=== PATIENT | female | born 1980 | race Caucasian/White ===

== ENCOUNTER 2021-02-23 08:06 | Outpatient (CLI) | payer OTHER, SELFPAY ==
--- NOTE | 2021-02-23 08:23 | ECHO_ITS ---
Patient Info Name: Calli Alexander Age: 40 years : 1980 Gender: Female Ht: 62 in Wt: 219 lbs BSA: 2.14 m2 HR: 91 bpm BP: 118 / 88 mmHg Heart Rhythm: Sinus Rhythm Exam Date: 02/23/2021 8:35 AM Exam Location: [facility] Patient Status: Outpatient Admit Date: 02/23/2021 Staff Ordering Physician: Veena Thapa NP Electric Blanket Packer: Ирина Aguilera RDCS Attending Provider: Veena Thapa NP Exam Type: CA echo doppler color flow Study Info Indications R01.1 - Cardiac murmur, unspecified Complete two-dimensional, color flow and Doppler transthoracic echocardiogram is performed. Summary 1. Complete two-dimensional, color flow and Doppler transthoracic echocardiogram is performed. 2. Left ventricular chamber dimension is normal. 3. Left ventricular systolic function is normal, estimated at 60-65%. 4. The left ventricular diastolic function is grade I diastolic dysfunction. 5. E/e' 10 is mildly elevated. 6. Left atrial chamber dimension is mildly enlarged. 7. There is trace mitral valve regurgitation. 8. No pulmonary hypertension, estimated pulmonary arterial systolic pressure is 31 mmHg. Left Ventricle E/e' 10 is mildly elevated. Left ventricular chamber dimension is normal. Left ventricular systolic function is normal, estimated at 60-65%. The left ventricular diastolic function is grade I diastolic dysfunction. Right Ventricle Right ventricular chamber dimension is normal. Right ventricular systolic function is normal. Left Atria Left atrial chamber dimension is mildly enlarged. Right Atria Right atrial chamber dimension is normal. Aortic Valve The aortic valve is trileaflet. There is no aortic valve stenosis. There is no aortic valve regurgitation. Pulmonic Valve There is no pulmonic regurgitation. Mitral Valve There is no mitral valve stenosis. There is trace mitral valve regurgitation. Tricuspid Valve There is no tricuspid valve regurgitation. No pulmonary hypertension, estimated pulmonary arterial systolic pressure is 31 mmHg. Pericardium/Pleural There is no pericardial effusion. Inferior Vena Cava Normal inferior vena cava with >50% collapse upon inspiration consistent with normal right atrial pressure, 5 mmHg. Aorta The aortic root size at the sinus of Valsalva is normal. Left Ventricular Outflow Tract Name Value Normal LVOT 2D LVOT Diameter 1.8 cm LVOT Doppler LVOT Peak Gradient 12 mmHg LVOT Mean Gradient 6 mmHg LVOT VTI 40 cm LVOT VTI/AV VTI Ratio 0.9 LVOT Stroke Volume 97 ml LVOT CO 7.9 l/min LVOT CI 3.7 l/min/m2 Pulmonic Valve Name Value Normal RVOT Doppler RVOT Peak Gradient
== END 2021-02-23 08:07 | disposition home or self-care (01) ==
PROVIDERS: PCP Internal Medicine; Visit Provider Nurse Practitioner
DX: R01.1 Cardiac murmur, unspecified (principal)
CPT/HCPCS: 93306

== ENCOUNTER 2021-04-15 08:22 | Outpatient (CLI) | payer OTHER, SELFPAY ==
--- NOTE | ~2021-04-15 | CT_ITS ---
EXAMINATION: CT abdomen pelvis wo/w con DATE: 04/15/2021 10:02 INDICATION: History of kidney cancer, partial left nephrectomy. TECHNIQUE: Computed tomography (CT) of the abdomen and pelvis was performed without intravenous contr ast. CT of the abdomen and pelvis was then performed with a total of 130 mL Omnipaque 350 intravenous contrast using a double-bolus technique for simultaneous opacification of the renal parenchyma and r enal collecting system. The dose-length product (DLP) was 2693.48 mGy-cm. Automated exposure control and iterative reconstruction technique were employed. COMPARISON: 11/28/2014 FINDINGS: The lung bases are clear. The heart size is normal. The gallbladder is surgically absent. T he liver, spleen, pancreas, and adrenal glands are normal. There are changes of partial left nephrect edelmira. No residual or recurrent mass is identified. The right kidney is unremarkable. Hypoattenuating l esions in the upper pole of the left kidney, measuring up to 4 mm, are too small to characterize but likely represent cysts. No pathologically enlarged abdominal or pelvic lymph nodes are identified. Th ere is no free intraperitoneal gas or evidence of bowel obstruction. IMPRESSION: 1. Changes of partial left nephrectomy without residual or recurrent disease identified. Reviewed, dictated and finalized at location A. IMPRESSION: 1. Changes of partial left nephrectomy without residual or recurrent disease id entified.
--- NOTE | ~2021-04-15 | XR_ITS ---
EXAMINATION: XR chest 2V DATE: 04/15/2021 09:24 INDICATION: History of kidney cancer TECHNIQUE: PA and lateral views of the chest are obtained. COMPARISON: 08/17/2013 FINDINGS: The lungs are free of acute opacities. There is no pleural effusion or pneumothorax. The ca rdiomediastinal silhouette is normal. There is mild thoracic spondylosis. IMPRESSION: 1. No acute cardiopulmonary abnormality. Reviewed, dictated and finalized at location A.
[2021-04-15 09:16] LABS: Hematocrit 44.4 % (37.0-47.0); Hemoglobin 14.1 g/dL (12.0-15.0); Mean Corpuscular HGB Conc 31.8 g/dl (32-36); Mean Corpuscular Hemoglobin 27.3 pg (26-34); Mean Platelet Volume 10.4 fl (7.4-10.4); Platelet Count Result 334 k/mm3 (150-375); Red Blood Count 5.16 M/mm3 (4.2-5.4); Red Cell Distribution Width 13.9 % (11.5-14.5); White Blood Count 11.4 K/mm3 (4.5-10.0)
[2021-04-15 09:28] LABS: Anion Gap 10 mmol/L (8-16); Blood Urea Nitrogen 18 mg/dL (7-17); Calcium 10.3 mg/dL (8.4-10.2); Carbon Dioxide 25 mmol/L (22-30); Chloride 102 mmol/L (98-107); Estimated Glomerular Filt Rate > 60; Glucose 103 mg/dL (65-105); Potassium 4.6 mmol/L (3.4-5.0); Sodium 137 mmol/L (137-145)
[2021-04-15 09:39] LABS: Estimated Glomerular Filt Rate > 60
== END 2021-04-15 08:23 | disposition home or self-care (01) ==
PROVIDERS: PCP Internal Medicine
DX: Z85.528 Personal history of other malignant neoplasm of kidney (principal)
CPT/HCPCS: 36415; 71046; 74178; 80048; 85027; Q9967

== ENCOUNTER 2023-11-04 08:02 | Emergency (ER) | payer OTHER, SELFPAY ==
--- NOTE | ~2023-11-04 | XR_ITS ---
EXAMINATION: XR chest 1V portable INDICATION: Upper respiratory infection TECHNIQUE: Portable AP chest at 0838 hours COMPARISON: 04/15/2021 FINDINGS: There is a nodular airspace opacity in the left lung base. No pleural effusion or pneumotho rax. The cardiomediastinal silhouette is normal. IMPRESSION: 1. Left basilar airspace opacity, likely pneumonia. Given patient's history of left kidney cancer, fo llow-up radiographs after appropriate therapy are recommended to document resolution. Reviewed, dictated and finalized at location F. ETING PERFORMANCE ANALYST IMPRESSION: 1. Left basilar airspace opacity, likely pneumonia. Given patient's history of left kidney cancer, follow-up radiographs after appropriate therapy are recomme nded to document resolution.
[2023-11-04 08:04] VITALS: BP 148/85; PULSE 103; RESP 12; TEMP 37.1; O2SAT 100
[2023-11-04 08:13] VITALS: O2SAT 98
--- NOTE | 2023-11-04 08:21 | ECG_ITS ---
Measurements Intervals [place] Rate: 97 P: 69 ND: 119 QRS: 67 QRSD: 81 T: 69 QT: 355 QTc: 452 Interpretive Statements SINUS RHYTHM WITH SHORT ND INTERVAL VOLTAGE CRITERIA FOR LVH BASELINE ARTIFACT- I, II, III, AVR, AVL, AVF, V1-V6 BORDERLINE ECG NO PREVIOUS ECG AVAILABLE FOR COMPARISON Electronically Signed On 11-06-2023 8:36:17 TELECINE OPERATOR by Lazarus Bagley D.O.
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
[2023-11-04] MEDS: MORPHINE SULFATE (*CRX) 2 MG/ML INJ IV PUSH (08:30)
[2023-11-04 08:38] LABS: Basophils Absolute Auto 0.1 K/mm3 (0.0-0.1); Basophils Percent Auto 0.4 % (0.2-1.2); Eosinophils Absolute Auto 0.1 K/mm3 (0-0.3); Eosinophils Percent Auto 0.7 % (0-4.4); Hematocrit 41.7 % (37.0-47.0); Hemoglobin 13.7 g/dL (12.0-15.0); Immature Granulocyte Absolute 0.08 K/mm3 (0.00-0.031); Immature Granulocyte Percent A 0.4 % (0-0.5); Lymphocytes Absolute Auto 1.33 K/mm3 (0.9-3.2); Lymphocytes Percent Auto 6.8 % (18.3-44.2); Mean Corpuscular HGB Conc 32.9 g/dl (32-36); Mean Corpuscular Hemoglobin 28.7 pg (26-34); Mean Corpuscular Volume 87.4 fl (80-100); Mean Platelet Volume 10.9 fl (7.4-10.4); Monocytes Absolute Auto 1.1 K/mm3 (0.1-0.6); Monocytes Percent Auto 5.8 % (2.6-8.5); Neutrophils Absolute Auto 16.8 K/mm3 (1.3-6.7); Neutrophils Percent Auto 85.9 % (45.5-73.1); Platelet Count Result 298 k/mm3 (150-375); Red Blood Count 4.77 M/mm3 (4.2-5.4); Red Cell Distribution Width 12.8 % (11.5-14.5); White Blood Count 19.6 K/mm3 (4.5-10.0)
[2023-11-04 08:47] LABS: Prothrombin Time 13.3 Seconds (11.1-14.7)
[2023-11-04 08:48] LABS: Partial Thromboplastin Time 32.3 SECONDS (22.3-36.8)
[2023-11-04 08:54] VITALS: BP 108/65; PULSE 97; RESP 18; O2SAT 100
[2023-11-04 08:57] LABS: Alanine Aminotransferase 20 U/L (6-35); Albumin Level 4.3 g/dL (3.5-5.1); Alkaline Phosphatase 97 U/L (38-126); Anion Gap 7 mmol/L (8-16); Aspartate Amino Transferase 26 U/L (14-36); Bilirubin,Total 0.8 mg/dL (0.2-1.3); Blood Urea Nitrogen 19 mg/dL (7-17); Carbon Dioxide 29 mmol/L (22-30); Chloride 101 mmol/L (98-107); Estimated CRCL calculation 80 ml/min; Estimated Glomerular Filt Rate > 60; Glucose 127 mg/dL (65-110); Lactic Acid Reflex 1.2 mmol/L (0.7-2.0); Lipase 43 U/L (23-300); Potassium 3.3 mmol/L (3.4-5.0); Sodium 137 mmol/L (137-145)
[2023-11-04 09:15] LABS: Influenza A QL RT-PCR Negative (Negative); Influenza B QL RT-PCR Negative (Negative); RSV RNA, RT-PCR Negative (Negative); SARS-CoV-2 RNA PCR Positive (Negative)
[2023-11-04] MEDS: DOXYCYCLINE HYCLATE 100 MG TABLET PO (09:49)
[2023-11-04 10:01] LABS: Troponin I < 0.012 ng/mL (0.000-0.034)
[2023-11-04 10:58] VITALS: BP 128/81; PULSE 94; RESP 18; TEMP 36.7; O2SAT 96
--- NOTE | 2023-11-04 11:04 | PC.NURSE ---
Pt refusing to leave department. Came to nurses to take names to give to the [employer] for discharging pt. Pt states RX is not for her pneumonia, that medicine is prescribed for IBS RN instructed pt on uses of Doxycycline & Dr. Urbina spoke about Doxycyline.
--- NOTE | 2023-11-04 11:11 | PC.NURSE ---
RN called security for pt assistance to waiting room. Pt needing encouraged to leave.
--- NOTE | 2023-11-04 11:37 | PC.NURSE ---
Pt continues to refuse to leave clinical laboratory manager Susie speaking with pt, reviewing discharge instructions
--- NOTE | 2023-11-04 11:40 | PC.NURSE ---
Pt escorted from department by security.
== END 2023-11-04 11:42 | disposition home or self-care (01) ==
PROVIDERS: Emergency Provider Emergency Medicine; PCP Internal Medicine
DX: U07.1 COVID-19 (principal); J18.9 Pneumonia, unspecified organism; R07.89 Other chest pain; J45.909 Unspecified asthma, uncomplicated; I10 Essential (primary) hypertension; E78.5 Hyperlipidemia, unspecified; E11.9 Type 2 diabetes mellitus without complications; N28.9 Disorder of kidney and ureter, unspecified; M19.90 Unspecified osteoarthritis, unspecified site; M79.7 Fibromyalgia; F17.210 Nicotine dependence, cigarettes, uncomplicated; Z85.528 Personal history of other malignant neoplasm of kidney; Z85.41 Personal history of malignant neoplasm of cervix uteri; Z86.2 Personal history of diseases of the blood and blood-forming organs and certain disorders involving the immune mechanism; Z90.5 Acquired absence of kidney; Z79.84 Long term (current) use of oral hypoglycemic drugs; R94.31 Abnormal electrocardiogram [ECG] [EKG]
CPT/HCPCS: 36415; 71045; 80053; 83605; 83690; 84484; 85025; 85610; 85730; 87637; 93005; 96374; 99284; A9270; J2270

== ENCOUNTER 2024-07-01 17:55 | Inpatient (IN) | payer OTHER, SELFPAY ==
--- NOTE | ~2024-07-01 | CT_ITS ---
Non-contrast Head CT History: Headache Technique: Axial non-contrast imaging of the brain was performed. Dose reduction technique was used on this scan by utilizing automated exposure control and iterative reconstruction technique. The dose -length product (DLP) was 605.33 mGy-cm. Findings: There is no evidence of intracranial hemorrhage, mass lesion, or acute infarct. Brain par enchyma appears normal. The ventricles and subarachnoid spaces are normal in size. The calvarium ap pears normal. The visualized paranasal sinuses and mastoid air cells are clear. Impression: No significant abnormality seen. Reviewed, dictated and finalized at location . Impression: No significant abnormality seen.
--- NOTE | ~2024-07-01 | CT_ITS ---
EXAMINATION: CT abdomen pelvis w con DATE: 07/02/2024 13:17 INDICATION: Kidney cancer. TECHNIQUE: Computed tomography (CT) of the abdomen and pelvis was performed with 100 mL Omnipaque 350 intravenous contrast. Automated exposure control and iterative reconstruction technique were employe d. The dose-length product was 369.20 mGy-cm. COMPARISON: CT abdomen and pelvis 04/15/2021 FINDINGS: The visualized portions of the lung bases demonstrate mild atelectasis on the left. No pleu ral effusion. The heart size is normal. No pericardial effusion. The liver and spleen are normal. The re are changes of cholecystectomy. The pancreas and adrenal glands are normal. There is cortical jax ical thinning of right kidney. There are changes of partial left nephrectomy. There is a left flank i ncisional hernia containing fat. There are no dilated loops of bowel. The appendix is normal. There a re no pathologically enlarged lymph nodes. There is no free intraperitoneal fluid. There is severe lo wer lumbar spondylosis. IMPRESSION: 1. Partial left nephrectomy. No residual or recurrent neoplasm. Reviewed, dictated and finalized at location A.
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
--- NOTE | ~2024-07-01 | US_ITS ---
EXAMINATION: US soft tissue UE RT DATE: 07/02/2024 15:04 INDICATION: Right upper arm abscess. TECHNIQUE: Multiple grayscale and Doppler ultrasound images of the right upper arm were obtained. COMPARISON: None FINDINGS: In the right axilla and right upper arm, there is hyperechoic subcutaneous fat and edema. T here is a 10 x 4 x 8 mm hypoechoic subcutaneous mass in right axilla. IMPRESSION: 1. Cellulitis involving right axilla and right upper arm. A 10 x 4 x 8 mm hypoechoic subcutaneous mas s in right axilla but may be early abscess. Reviewed, dictated and finalized at location A. IMPRESSION: 1. Cellulitis involving right axilla and right upper arm. A 10 x 4 x 8 mm hypoe choic subcutaneous mass in right axilla but may be early abscess.
[2024-07-01 18:05] VITALS: BP 136/82; PULSE 115; RESP 16; TEMP 38.1; O2SAT 99
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
--- NOTE | 2024-07-01 19:47 | PC.NURSE ---
Pt states that she is deathly afraid of needles and doesn't want to embarrass herself out in the waiting room.
[2024-07-01 20:43] VITALS: BP 96/56; PULSE 113; RESP 18; TEMP 37.6; O2SAT 99
[2024-07-01 23:20] LABS: Basophils Percent Auto 0.2 % (0.2-1.2); Eosinophils Percent Auto 0.2 % (0-4.4); Hemoglobin 12.9 g/dL (12.0-15.0); Immature Granulocyte Absolute 0.05 K/mm3 (0.00-0.031); Immature Granulocyte Percent A 0.3 % (0-0.5); Lymphocytes Percent Auto 15.2 % (18.3-44.2); Mean Corpuscular HGB Conc 33.1 g/dl (32-36); Mean Corpuscular Volume 87.6 fl (80-100); Mean Platelet Volume 10.6 fl (7.4-10.4); Monocytes Absolute Auto 1.3 K/mm3 (0.1-0.6); Monocytes Percent Auto 7.7 % (2.6-8.5); Neutrophils Absolute Auto 12.6 K/mm3 (1.3-6.7); Neutrophils Percent Auto 76.4 % (45.5-73.1); Platelet Count Result 258 k/mm3 (150-375); Red Blood Count 4.45 M/mm3 (4.2-5.4); Red Cell Distribution Width 14.6 % (11.5-14.5); White Blood Count 16.5 K/mm3 (4.5-10.0)
[2024-07-01 23:31] LABS: Prothrombin Time 13.4 Seconds (11.1-14.7)
[2024-07-01 23:37] LABS: Alanine Aminotransferase 31 U/L (6-35); Albumin Level 4.7 g/dL (3.5-5.1); Alkaline Phosphatase 88 U/L (38-126); Anion Gap 11 mmol/L (4-12); Aspartate Amino Transferase 28 U/L (14-36); Bilirubin,Total 0.6 mg/dL (0.2-1.3); Blood Urea Nitrogen 15 mg/dL (7-17); Calcium 9.4 mg/dL (8.4-10.2); Carbon Dioxide 25 mmol/L (22-30); Chloride 95 mmol/L (98-107); Estimated CRCL calculation 107 ml/min; Estimated Glomerular Filt Rate > 60; Glucose 113 mg/dL (65-110); Sodium 131 mmol/L (137-145)
[2024-07-01 23:38] LABS: Partial Thromboplastin Time 32.6 Seconds (22.3-36.8)
[2024-07-01 23:45] LABS: Erythrocyte Sedimentation Rate 31 mm/hr (0-20)
[2024-07-02] VITALS (10 sets, daily range): BP systolic 101–129; BP diastolic 45–64; PULSE 90–103; RESP 13–20; TEMP 36.5–37.3; O2SAT 98–100
--- NOTE | 2024-07-02 | PC.NURSE ---
spoke with ERP about tylenol order, stated that she would prescribe something else for pain.
[2024-07-02 00:12] LABS: CRP 7.2 mg/dL (<1.0)
[2024-07-02] MEDS: SODIUM CHLORIDE 0.9% IV 1,000 ML 999 ML IV CONT (00:43)
[2024-07-02] MEDS: ONDANSETRON INJ 4 MG/2 ML VIAL IV PUSH (00:44)
[2024-07-02] MEDS: KETOROLAC 15 MG/ML VIAL (*BKC) IV PUSH ×2 (00:44→09:21)
[2024-07-02] MEDS: VANCOMYCIN 1,250 MG/NS 250 ML BAG 166.67 MG IVPB (01:36)
--- NOTE | 2024-07-02 01:49 | PM.IMHP ---
H&P: HPI History of Present Illness Date/Time: 07/02/24 01:49 Chief Complaint: right arm cellulitis Narrative: This is a 43-year-old female with past medical history significant for COPD/emphysema, type diabetes mellitus, diabetes, asthma, fibromyalgia. 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 Comes to the emergency room due to right arm swelling tenderness redness, fevers, chills for the last 3-4 days Review of Systems Review of Systems: right arm tenderness, swelling, redness, warmth, chills PMFSH Past Medical History Medical History Allergies Anemia Asthma Cervical cancer Chicken pox Colitis Fibromyalgia Heart murmur Herpes History of kidney cancer Cancer removed left kidney 01/2018 Hyperlipidemia Hypertension Osteoarthritis Renal disease Thyroid nodule Type 2 diabetes mellitus Surgical History Surgical History H/O section 1995,2006 H/O dilation and curettage 2009 H/O eye surgery 1982, 1986, 1991, 2014 Family History Family History Mother Hypertension Diabetes mellitus Sibling Asthma Other Cerebrovascular accident Family history of allergic disorder Family history of arthritis Family history of autism Family history of eczema Family history of kidney disease Family history of malignant neoplasm Social History Social History Smoking packs per day: 1 Smoking cigarettes per day: 20.0 Years smoked: 34 Smoking pack-years: 34.00 Smoking status: Former smoker Tobacco type: cigarettes Smoking end date: 05/23/24 Alcohol intake: former Substance use: former Substance use type: methamphetamine Last use: 05/31/24 Do You Feel Safe in your Home?: Yes Lack of Transportation: YES Lack of Food: Often True Current Housing: I Do Not Have Housing Concerned About Future Housing: YES Difficulty Paying Gas/Electric Bills: Decline to Answer Difficulty Paying for Meds: No Currently Unemployed: YES Education: Trade/Vocational Certificate Difficulty w/ Childcare or Family Care: No Spiritual care concerns: No Meds Home Medications and Allergies Home Medications Medication Instructions Recorded Confirmed Type amitriptyline 50 mg tablet 50 mg PO .QHS #90 tabs 06/22/22 09/10/24 Rx albuterol sulfate 90 mcg/actuation 2 puff inhalation QID PRN 07/02/24 07/02/24 History aerosol inhaler (Ventolin HFA) Shortness Of Breath Or Wheezing Allergies Allergy/AdvReac Type Severity Reaction Status Date / Time codeine Allergy Unknown Anaphylactic Verified 07/02/24 04:44 Shock guaifenesin Allergy Unknown Reverse Verified 07/02/24 04:44 effect ketorolac Allergy Unknown vomiting Verified 07/02/24 04:44 Penicillins Allergy Unknown Anaphylactic Verified 07/02/24 04:44 Shock nuts and nut products Allergy Severe respiratory Uncoded 07/02/24 04:44 distress Vital Signs Vital Signs - 24 hr 07/01/24 18:05 07/01/24 20:43 Temperature 100.6 F H 99.6 F Pulse Rate 115 H 113 H Respiratory Rate 16 18 Blood Pressure 136/82 96/56 L Pulse Oximetry 99 99 Exam Narrative: patient laying in the stretcher Const: General: comfortable, no acute distress, well developed, alert, awake and average body habitus Nutritional Appearance: average body habitus Orientation/consciousness: patient oriented x3 HENMT: Head: normal to inspection, normocephalic and atraumatic Ears: hearing grossly normal bilaterally Face/Nose/Sinus: normal facial exam Face and sinus: normal facial exam Eyes: General: appearance normal, both eyes and all related structures Pupils: Equal, round and reactive pupils present EOM: EOMs intact bilaterally Neck: Neck: full ROM, no lymphadenop
[2024-07-02 01:59] LABS: Add Urine Microscopic? YES; Appearance Urine Cloudy (Clear); Bacteria Urine 1+ /hpf; Bilirubin Urine Negative (Negative); Blood Urine Negative (Negative); Color Urine Yellow (Yellow); Glucose Urine UA Negative (Negative); Ketones Urine Negative (Negative); Leukocyte Esterase Ur Trace LEU/UL (Negative); Nitrate Urine Negative (Negative); Non Pathogenic Casts 0-2; Protein Urine Negative (Negative); RBC Urine 0-2 /hpf (0-2); Squamous Epithelial Cell Urine Few /hpf (Few); Urobilinogen Urine 0.2 mg/dL (<2.0)
[2024-07-02] MEDS: diphenhydrAMINE HCl INJ 50 MG/ML VIAL 25 MG IV PUSH (02:20)
[2024-07-02] MEDS: MORPHINE SULFATE (*CRX) 4 MG/ML INJ IV PUSH (02:20)
[2024-07-02] MEDS: SODIUM CHLORIDE 0.9% IV 1,000 ML 125 ML IV CONT (05:45)
--- NOTE | 2024-07-02 05:50 | ADMGEN ---
This patient, Calli Alexander, was admitted to 2 Medical Room 259-01. Patient/family oriented to hospital policies and general routines including ID bracelet, bed and alarms, visiting hours, pain management, procedures, bathroom and other care routines, personal items, smoking policy, room service/diet, and visiting hours. Information on how to activate the Rapid Response Team has been discussed. Patient/Family are encouraged to report perceived risks to care and to ask questions if they do not understand what they are told or what they should do.
--- NOTE | 2024-07-02 06:56 | PM.IMPN ---
Progress Note: A&P Assessment and Plan (1) Sepsis: Code(s): A41.9 - Sepsis, unspecified organism Status: Acute Assessment and Plan: Meets SIRS criteria: WBC, HR, hypotension - lactic acid: 1.0 - s/p 1L bolus in the ED, remains on IV NS 100 ml/hr - suspected source: right arm cellulitis with abscess - blood cultures drawn on 07/01: pending - UA: cloudy appearance, trace leukocytes, 11-20 WBC, 1+ bacteria, few squamous. Likely contaminant. - Urine culture collected on 07/01: pending - Antibiotics: Vancomycin and levaquin (2) Right arm cellulitis: Code(s): L03.113 - Cellulitis of right upper limb Status: Acute Assessment and Plan: Right arm cellulitis with abscess present - Antibiotics: Vancomycin and levaquin - Blood culture collected on 07.01: pending - Monitor vital signs, I&Os, neuro status and patient is a fall risk - Monitor serum electrolytes, CBC, cultures, WBC and temp curve - Consult general surgeon Soft tissue US Continue IV antibiotics May require I&D (3) Type 2 diabetes mellitus: Code(s): E11.9 - Type 2 diabetes mellitus without complications Status: Acute Assessment and Plan: - hypoglycemia protocol - POC blood glucose ACHS - home medication - none - correct regimen ordered - low dose TIDWM - A1C ordered (4) Hypertension: Code(s): I10 - Essential (primary) hypertension Status: Acute Assessment and Plan: Chronic, not on any home medications. Monitor (5) Methamphetamine use: Code(s): F15.10 - Other stimulant abuse, uncomplicated Status: Acute Assessment and Plan: Previously snorted methamphetamine. Last used approximately one month ago. Currently in rehab at [place]. (6) Hip pain, left: Code(s): M25.552 - Pain in left hip Status: Acute Assessment and Plan: Patient endorsing left hip pain on admission. Per chart review, patient reported an XR was performed at an outside facility of her L hip without abnormalities. - Lumbar spine CT: No fracture or subluxation. Probable advanced degenerative spondylosis at L3-L4, L4-L5, and L5-S1, as detailed above. (7) Tobacco dependence: Code(s): F17.200 - Nicotine dependence, unspecified, uncomplicated Status: Acute Assessment and Plan: Encouraged smoking cessation. Nicotine gum ordered Time Spent With Patient Time with patient: 25 - 35 minutes Subjective Date/time seen: 07/02/24 06:56 Interval history: 43 year old female with past medical history of cervical cancer s/p ablation in 2009, kidney cancer 2020 not currently on treatment, epilepsy, asthma, COPD and methamphetamine use currently getting treatment at [facility] presents to the hospital for right arm redness and swelling. Patient is pleasant lying in bed. She continues to endorse pain to the right axilla with noted redness and swelling extending to the elbow. She denies abscess anywhere else. There is no active drainage. Surgery was consulted plan to continue IV anabiotics at this time with a possible I&D. An US was ordered to further evaluate. Spoke with ID pharmacy and will start patient on Levaquin as she has a severe pencillin allergy. Will continue vancomycin. Patient denies chest pain, shortness of breath, nausea/vomiting and abdominal pain. Patient noted that she has recurrent kidney cancer which has not been evaluated since being in long-term in 2020. Abd/pelvis CT showed Partial left nephrectomy. No residual or recurrent neoplasm. Review of Systems Review of Systems: All systems reviewed & are unremarkable except as noted in HPI and below Exam Narrative: AF HR 92 RR 13 SpO2 100 BP 102/61 General: female in no acute respiratory distress who is nontoxic appearing, lying semi recumbent in bed. HEENT: Normocephalic. Atraumatic. Extraocular movement intact. Sclera clear and anicteric. No facial asymmetry. Chest: Lungs are clear to auscultation bilaterally.
--- NOTE | 2024-07-02 07:10 | PC.NURSE ---
RN called [facility] to obtain list of medications; Confirmation obtained from [facility] staff.
[2024-07-02 09:11] LABS: Alanine Aminotransferase 29 U/L (6-35); Albumin Level 3.7 g/dL (3.5-5.1); Alkaline Phosphatase 65 U/L (38-126); Anion Gap 8 mmol/L (4-12); Aspartate Amino Transferase 31 U/L (14-36); Bilirubin,Total 0.6 mg/dL (0.2-1.3); Blood Urea Nitrogen 16 mg/dL (7-17); Calcium 8.2 mg/dL (8.4-10.2); Carbon Dioxide 26 mmol/L (22-30); Chloride 100 mmol/L (98-107); Estimated CRCL calculation 91 ml/min; Estimated Glomerular Filt Rate > 60; Glucose 125 mg/dL (65-110); Potassium 3.6 mmol/L (3.4-5.0); Sodium 134 mmol/L (137-145)
[2024-07-02 09:31] LABS: Basophils Percent Auto 0.2 % (0.2-1.2); Eosinophils Absolute Auto 0.1 K/mm3 (0-0.3); Eosinophils Percent Auto 0.6 % (0-4.4); Hematocrit 34.7 % (37.0-47.0); Immature Granulocyte Absolute 0.06 K/mm3 (0.00-0.031); Immature Granulocyte Percent A 0.5 % (0-0.5); Lymphocytes Absolute Auto 1.71 K/mm3 (0.9-3.2); Lymphocytes Percent Auto 13.1 % (18.3-44.2); Mean Corpuscular HGB Conc 31.7 g/dl (32-36); Mean Corpuscular Hemoglobin 29.1 pg (26-34); Mean Corpuscular Volume 91.8 fl (80-100); Mean Platelet Volume 11.1 fl (7.4-10.4); Monocytes Absolute Auto 0.9 K/mm3 (0.1-0.6); Monocytes Percent Auto 6.7 % (2.6-8.5); Neutrophils Absolute Auto 10.3 K/mm3 (1.3-6.7); Neutrophils Percent Auto 78.9 % (45.5-73.1); Platelet Count Result 203 k/mm3 (150-375); Red Blood Count 3.78 M/mm3 (4.2-5.4); Red Cell Distribution Width 14.7 % (11.5-14.5); White Blood Count 13.1 K/mm3 (4.5-10.0)
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
--- NOTE | 2024-07-02 10:56 | PC.NURSE ---
On 07/02/24, the student, [Cheryl Avilez], provided care and completed [facility] documentation on this patient. I have reviewed the student's documentation and agree with the findings.
[2024-07-02] MEDS: VANCOMYCIN 1,250 MG/NS 250 ML 1,250 MG/250 ML BAG 166.67 MG IVPB (14:45)
[2024-07-02] MEDS: levoFLOXacin 750 MG TABLET PO (14:45)
[2024-07-02] MEDS: NICOTINE (*PBKC) 2 MG GUM PO (14:50)
[2024-07-02 14:57] LABS: Hemoglobin A1C 5.2 % (<5.7)
[2024-07-02] MEDS: NICOTINE (*PBKC) 21 MG PATCH 1 PATCH TRANSDERM (20:51)
[2024-07-02] MEDS: AMITRIPTYLINE HCL 25 MG TABLET 50 MG PO (20:51)
[2024-07-03] VITALS (9 sets, daily range): BP systolic 141–151; BP diastolic 49–84; PULSE 75–104; RESP 17–20; TEMP 36.5–36.7; O2SAT 99–100
[2024-07-03] MEDS: SODIUM CHLORIDE 0.9% IV 1,000 ML 100 ML IV CONT ×2 (01:11→14:54)
[2024-07-03] MEDS: VANCOMYCIN 1,250 MG/NS 250 ML 1,250 MG/250 ML BAG 166.67 MG IVPB (01:11)
[2024-07-03 05:18] LABS: Basophils Percent Auto 0.3 % (0.2-1.2); Eosinophils Absolute Auto 0.2 K/mm3 (0-0.3); Eosinophils Percent Auto 1.6 % (0-4.4); Hematocrit 33.6 % (37.0-47.0); Hemoglobin 10.4 g/dL (12.0-15.0); Immature Granulocyte Absolute 0.04 K/mm3 (0.00-0.031); Immature Granulocyte Percent A 0.3 % (0-0.5); Lymphocytes Absolute Auto 1.53 K/mm3 (0.9-3.2); Lymphocytes Percent Auto 13.4 % (18.3-44.2); Mean Corpuscular Hemoglobin 28.4 pg (26-34); Mean Corpuscular Volume 91.8 fl (80-100); Mean Platelet Volume 10.4 fl (7.4-10.4); Monocytes Absolute Auto 0.8 K/mm3 (0.1-0.6); Monocytes Percent Auto 7.1 % (2.6-8.5); Neutrophils Absolute Auto 8.9 K/mm3 (1.3-6.7); Neutrophils Percent Auto 77.3 % (45.5-73.1); Platelet Count Result 190 k/mm3 (150-375); Red Blood Count 3.66 M/mm3 (4.2-5.4); Red Cell Distribution Width 14.5 % (11.5-14.5); White Blood Count 11.5 K/mm3 (4.5-10.0)
[2024-07-03 05:36] LABS: Alanine Aminotransferase 25 U/L (6-35); Albumin Level 3.6 g/dL (3.5-5.1); Alkaline Phosphatase 71 U/L (38-126); Anion Gap 7 mmol/L (4-12); Aspartate Amino Transferase 20 U/L (14-36); Bilirubin,Total 0.2 mg/dL (0.2-1.3); Blood Urea Nitrogen 11 mg/dL (7-17); Calcium 8.6 mg/dL (8.4-10.2); Carbon Dioxide 25 mmol/L (22-30); Chloride 103 mmol/L (98-107); Estimated CRCL calculation 130 ml/min; Estimated Glomerular Filt Rate > 60; Glucose 131 mg/dL (65-110); Potassium 3.6 mmol/L (3.4-5.0); Sodium 135 mmol/L (137-145)
[2024-07-03] MEDS: NICOTINE (*PBKC) 21 MG PATCH 1 PATCH TRANSDERM (09:29)
--- NOTE | 2024-07-03 10:23 | PM.IMPN ---
Progress Note: A&P Assessment and Plan (1) Sepsis: Code(s): A41.9 - Sepsis, unspecified organism Status: Acute Assessment and Plan: 07/03/24: Meeting sepsis with elevated white blood cell count, increased heart rate, hypotension Likely sources cellulitis with abscess under right arm Blood cultures showed no growth to date on preliminary read. Urine culture was negative. Continue vancomycin and Levaquin White blood cell count 11.5 today (2) Right arm cellulitis: Code(s): L03.113 - Cellulitis of right upper limb Status: Acute Assessment and Plan: 07/03/24: Blood culture showing no growth to date on preliminary read Continue vancomycin and Levaquin Soft tissue ultrasound showing cellulitis involving right axilla and right upper arm, 10 x 4 x 8 mm hypoechoic mass in the right axilla which may be an early abscess General surgery consulted and following White blood cell count 11.5 today Continue pain control (3) Hypertension: Code(s): I10 - Essential (primary) hypertension Status: Acute Assessment and Plan: 07/03/24: Blood pressure ranging 102/611 to 141/49 Patient is not on any home blood pressure medications Continue to monitor (4) Methamphetamine use: Code(s): F15.10 - Other stimulant abuse, uncomplicated Status: Acute Assessment and Plan: 07/03/24: History of methamphetamine use Currently in rehab at [place] (5) Hip pain, left: Code(s): M25.552 - Pain in left hip Status: Acute Assessment and Plan: 07/03/24: Lumbar spine CT was negative for any acute fracture however did showed advanced degenerative spondylosis at L3-L4, L4-L5, L5-S1 Continue pain control (6) Tobacco dependence: Code(s): F17.200 - Nicotine dependence, unspecified, uncomplicated Status: Acute Assessment and Plan: 07/03/24: Encouraged smoking cessation. Continue Nicotine gum Time Spent With Patient Time with patient: Greater than 35 minutes Subjective Date/time seen: 07/03/24 10:23 Interval history: Interval history: This is a 43-year-old female who presented to the hospital on 07/01/2024 for evaluation right arm redness and swelling. Workup in the hospital included lumbar spine CT which was negative for any fracture, showed advanced degenerative spondylosis at L3-L4, L4-L5, and L5-S1. Head CT was negative. Abdomen/pelvis CT on partial left nephrectomy otherwise normal. Soft tissue ultrasound of the right upper extremity showed cellulitis involving right axilla and right upper arm, 10 x 4 x 8 mm subcutaneous mass in right axilla which may be early abscess. Blood and urine cultures were obtained. Urine culture has already resulted as no growth. Blood culture showing no growth on preliminary read. Patient was started on vancomycin and Levaquin. General surgery was consulted and following. Subjective: Patient denies any fever, chills, nausea, vomiting, diarrhea, abdominal pain, chest pain, shortness a breath. Patient endorses pain to the right upper extremity which is 3/10. Labs and imaging reviewed. Review of Systems Review of Systems: All systems reviewed & are unremarkable except as noted in HPI and below Constitutional: Constitutional: Reports as per HPI and Reports no additional constitutional complaints Eyes: Eyes: Reports as per HPI and Reports no additional eye complaints ENT: Reports system reviewed and no additional complaints, except as documented and Reports as per HPI Cardiovascular: Cardiovascular: Reports as per HPI and Reports no additional cardiovascular complaints Respiratory: Respiratory: Reports as per HPI and Reports no additional respiratory complaints Gastrointestinal: Gastrointestinal: Reports as per HPI and Reports no additional gastrointestinal complaints Genitourinary: Genitourinary: Reports no additional female genitourinary complaints and Reports as per HPI Musculoskeletal: Musculo
--- NOTE | 2024-07-03 11:52 | PM.PNGS ---
Progress Note: A&P Assessment and Plan (1) Abscess: Code(s): L02.91 - Cutaneous abscess, unspecified Status: Acute Assessment and Plan: Cellulitis and induration improving. US showed a small 1 cm area of possible early abscess. There is a more localized area of swelling that has developed since yesterday of the proximal upper arm near the axilla, which we will continue to monitor for development of an abscess. Continue IV antibiotics and reassess tomorrow. I will make her NPO after midnight in case there is any development of an abscess that would require an I&D. (2) Cellulitis: Qualifiers: Laterality: right Site of cellulitis: extremity Site of cellulitis of extremity: upper extremity Qualified Code(s): L03.113 - Cellulitis of right upper limb Code(s): L03.90 - Cellulitis, unspecified Status: Acute Assessment and Plan: Induration and erythema improved today. Continue IV antibiotics. (3) Sepsis: Code(s): A41.9 - Sepsis, unspecified organism Status: Acute Assessment and Plan: Improving. Blood cx NGTD. Tachycardia resolved, leukocytosis improving. Continue IV antibiotics. Plan I have discussed the patient's case and plan of care with Dr. Paige. Subjective Subjective Date/Time Seen: 07/03/24 11:52 Patient reports: afebrile (since 07/01) Interval history: Patient feels like her swelling on her upper arm is progressing posteriorly. She said the redness has improved, but there is an area of swelling close to the axilla that is slightly posterior and more tender today. Review of Systems Review of Systems: All systems reviewed & are unremarkable except as noted in HPI and below Exam Const: General: comfortable and no acute distress Orientation/consciousness: patient oriented x3 Extrem: Other: Right upper arm with induration and redness improved, there is a more localized area of swelling with slight fluctuance that is proximal near the axilla and slightly posterior. Psych: Mental Status: mental status grossly normal Objective Data Vital Signs Vital Signs: Vital Signs - 24 hr 07/02/24 12:00 07/02/24 14:05 07/02/24 16:00 Temperature 97.7 F Pulse Rate 93 92 103 H Respiratory Rate 13 Blood Pressure 102/61 Pulse Oximetry 100 Oxygen Delivery 07/02/24 20:36 07/02/24 20:00 07/03/24 00:00 Temperature 99.1 F Pulse Rate 98 95 98 Respiratory Rate 20 Blood Pressure 129/52 L Pulse Oximetry 100 Oxygen Delivery 07/03/24 04:00 07/03/24 06:00 07/03/24 09:30 Temperature 98.0 F Pulse Rate 98 86 Respiratory Rate 20 Blood Pressure 141/49 H Pulse Oximetry 99 Oxygen Delivery Room Air Intake/Output Intake/Output: Intake & Output 06/30/24 07/01/24 07/02/24 07/03/24 23:59 23:59 23:59 23:59 Intake Total 3442.0 1172 Balance 3442.0 1172 Meds/Results Medications: Active Medications Generic Name Dose Route Start Last Admin Trade Name Freq PRN Reason Stop Dose Admin Albuterol 2 puff 07/02/24 06:16 Albuterol Sulfate (*Sp) Aerosol 1 Puff INHALATION QIDRT PRN Shortness Of Breath Or Wheezing Amitriptyline HCl 50 mg 07/02/24 21:00 07/02/24 20:51 Amitriptyline Hcl 25 Mg Tablet PO 50 mg HS ANTONIO Administration Enoxaparin Sodium 40 mg 07/03/24 09:00 Enoxaparin 40 Mg/0.4 Ml Syringe SUB-Q DAILY ANTONIO Hydroxyzine Pamoate 50 mg 07/03/24 10:42 Hydroxyzine Pamoate 25 Mg Capsule PO QID PRN Anxiety Sodium Chloride 1,000 mls @ 100 mls/hr 07/02/24 03:40 07/03/24 01:11 Normal Saline Iv IV CONT 100 mls/hr .Q10H ANTONIO Administration Vancomycin HCl 1,250 mg in 250 mls @ 166.667 mls/hr 07/02/24 14:00 07/03/24 02:41 Vancomycin 1,250 Mg/Ns 250 Ml IVPB Infused Q12H ANTONIO Infusion Ketorolac Tromethamine 15 mg 07/01/24 23:51 07/02/24 09:21 Ketorolac 15 Mg/Ml Vial (*Bkc) IV PUSH 15 mg Q6H PRN Administration Pain Rated 4-6
[2024-07-03 13:35] LABS: Vancomycin Trough < 5.0 ug/mL (10.0-20.0)
[2024-07-03] MEDS: VANCOMYCIN 1,500 MG/NS 500 ML 1,500 MG/500 ML BAG 150 MG IVPB (14:54)
[2024-07-03] MEDS: levoFLOXacin 750 MG TABLET PO (14:55)
[2024-07-03] MEDS: AMITRIPTYLINE HCL 25 MG TABLET 50 MG PO (20:22)
[2024-07-03] MEDS: traMADol HCL (*CRX) 25 MG TABLET PO (20:22)
[2024-07-04] VITALS (15 sets, daily range): BP systolic 116–158; BP diastolic 54–84; PULSE 72–94; RESP 14–20; TEMP 36.2–37.2; O2SAT 97–100
[2024-07-04] MEDS: SODIUM CHLORIDE 0.9% IV 1,000 ML 100 ML IV CONT (05:07)
[2024-07-04] MEDS: VANCOMYCIN 1,500 MG/NS 500 ML 1,500 MG/500 ML BAG 250 MG IVPB (05:30)
[2024-07-04 05:41] LABS: Basophils Percent Auto 0.5 % (0.2-1.2); Eosinophils Absolute Auto 0.3 K/mm3 (0-0.3); Eosinophils Percent Auto 3.1 % (0-4.4); Hematocrit 32.3 % (37.0-47.0); Hemoglobin 10.3 g/dL (12.0-15.0); Immature Granulocyte Absolute 0.02 K/mm3 (0.00-0.031); Immature Granulocyte Percent A 0.2 % (0-0.5); Lymphocytes Absolute Auto 1.75 K/mm3 (0.9-3.2); Mean Corpuscular HGB Conc 31.9 g/dl (32-36); Mean Platelet Volume 10.5 fl (7.4-10.4); Monocytes Absolute Auto 0.7 K/mm3 (0.1-0.6); Monocytes Percent Auto 8.1 % (2.6-8.5); Neutrophils Percent Auto 68.1 % (45.5-73.1); Platelet Count Result 208 k/mm3 (150-375); Red Blood Count 3.55 M/mm3 (4.2-5.4); Red Cell Distribution Width 14.2 % (11.5-14.5); White Blood Count 8.7 K/mm3 (4.5-10.0)
[2024-07-04 05:54] LABS: Alanine Aminotransferase 26 U/L (6-35); Albumin Level 3.6 g/dL (3.5-5.1); Alkaline Phosphatase 66 U/L (38-126); Anion Gap 11 mmol/L (4-12); Aspartate Amino Transferase 20 U/L (14-36); Bilirubin,Total 0.1 mg/dL (0.2-1.3); Blood Urea Nitrogen 14 mg/dL (7-17); Calcium 8.7 mg/dL (8.4-10.2); Carbon Dioxide 25 mmol/L (22-30); Chloride 102 mmol/L (98-107); Estimated CRCL calculation 107 ml/min; Estimated Glomerular Filt Rate > 60; Glucose 94 mg/dL (65-110); Potassium 4.2 mmol/L (3.4-5.0); Sodium 138 mmol/L (137-145)
--- NOTE | 2024-07-04 08:16 | ECG_ITS ---
Test Date: 2024-07-04 08:53:29 Measurements Intervals [place] Rate: 89 P: 67 WI: 138 QRS: 60 QRSD: 75 T: 46 QT: 355 QTc: 434 Interpretive Statements SINUS RHYTHM NORMAL ECG No previous ECG available for comparison Electronically Signed On 07-04-2024 08:57:21 CDT by Lazarus Bagley D.O.
--- NOTE | 2024-07-04 09:13 | P.PNIM_ITS ---
Progress Note: A&P Assessment and Plan (1) Sepsis: Code(s): A41.9 - Sepsis, unspecified organism Status: Acute Assessment and Plan: * Leukocytyosis, Fever, tachycardia, cellulitis * Sepsis without septic shock secondary to cellulitis * Vancomycin and Levaquin transitioned to Levaquin and doxycycline * Repeat CBC, CMP. * Two sets of blood cultures NGTD (2) Right arm cellulitis: Code(s): L03.113 - Cellulitis of right upper limb Status: Acute Assessment and Plan: 07/04/2024: * Blood culture NGTD * vancomycin and Levaquin switched to doxycycline and Levaquin poor IV access and vanc troughs * Soft tissue ultrasound showing cellulitis involving right axilla and right upper arm, 10 x 4 x 8 mm hypoechoic mass in the right axilla which may be an early abscess * General surgery consulted and following * NPO * I&D 07/04 * Normal WBC today * afebrile * Continue pain control (3) Methamphetamine use: Code(s): F15.10 - Other stimulant abuse, uncomplicated Status: Acute Assessment and Plan: 07/03/24: * History of methamphetamine use * Currently in rehab at [facility] (4) Hip pain, left: Code(s): M25.552 - Pain in left hip Status: Acute Assessment and Plan: 07/03/24: * Lumbar spine CT was negative for any acute fracture however did showed advanced degenerative spondylosis at L3-L4, L4-L5, L5-S1 * Continue pain control (5) Tobacco dependence: Code(s): F17.200 - Nicotine dependence, unspecified, uncomplicated Status: Acute Assessment and Plan: ? smoking cessation education ? nicotine patch daily ? remove at night Plan Code status: Full code per patient DVT prophylaxis: Lovenox Stress ulcer prophylaxis: Protonix 40 daily PT/OT notes: NA Disposition: Patient continues admission for cellulitis currently NPO for possible surgical debridement. Patient ambulatory on home and plan will be to discharge back to [facility] when medically stable Time Spent With Patient Time with patient: 15 - 25 minutes Subjective Date/time seen: 07/04/24 09:13 Interval history: Admission: Medical Chart This is a 43-year-old female who presented to the hospital on 07/01/2024 for evaluation right arm redness and swelling. Workup in the hospital included lumbar spine CT which was negative for any fracture, showed advanced degenerative spondylosis at L3-L4, L4-L5, and L5-S1. Head CT was negative. Abdomen/pelvis CT on partial left nephrectomy otherwise normal. Soft tissue ultrasound of the right upper extremity showed cellulitis involving right axilla and right upper arm, 10 x 4 x 8 mm subcutaneous mass in right axilla which may be early abscess. Blood and urine cultures were obtained. Urine culture has already resulted as no growth. Blood culture showing no growth on preliminary read. Patient was started on vancomycin and Levaquin. General surgery was consulted and following. 07/03/24 Patient denies any fever, chills, nausea, vomiting, diarrhea, abdo
--- NOTE | 2024-07-04 09:13 | PM.IMPN ---
Progress Note: A&P Assessment and Plan (1) Sepsis: Code(s): A41.9 - Sepsis, unspecified organism Status: Acute Assessment and Plan: Leukocytyosis, Fever, tachycardia, cellulitis Sepsis without septic shock secondary to cellulitis Vancomycin and Levaquin transitioned to Levaquin and doxycycline Repeat CBC, CMP. Two sets of blood cultures NGTD (2) Right arm cellulitis: Code(s): L03.113 - Cellulitis of right upper limb Status: Acute Assessment and Plan: 07/04/2024: Blood culture NGTD vancomycin and Levaquin switched to doxycycline and Levaquin poor IV access and vanc troughs Soft tissue ultrasound showing cellulitis involving right axilla and right upper arm, 10 x 4 x 8 mm hypoechoic mass in the right axilla which may be an early abscess General surgery consulted and following NPO I&D 07/04 Normal WBC today afebrile Continue pain control (3) Methamphetamine use: Code(s): F15.10 - Other stimulant abuse, uncomplicated Status: Acute Assessment and Plan: 07/03/24: History of methamphetamine use Currently in rehab at [place] (4) Hip pain, left: Code(s): M25.552 - Pain in left hip Status: Acute Assessment and Plan: 07/03/24: Lumbar spine CT was negative for any acute fracture however did showed advanced degenerative 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 smoking cessation education ? nicotine patch daily ? remove at night Plan Code status: Full code per patient DVT prophylaxis: Lovenox Stress ulcer prophylaxis: Protonix 40 daily PT/OT notes: NA Disposition: Patient continues admission for cellulitis currently NPO for possible surgical debridement. Patient ambulatory on home and plan will be to discharge back to [facility] when medically stable Time Spent With Patient Time with patient: 15 - 25 minutes Subjective Date/time seen: 07/04/24 09:13 Interval history: Admission: Medical Chart This is a 43-year-old female who presented to the hospital on 07/01/2024 for evaluation right arm redness and swelling. Workup in the hospital included lumbar spine CT which was negative for any fracture, showed advanced degenerative spondylosis at L3-L4, L4-L5, and L5-S1. Head CT was negative. Abdomen/pelvis CT on partial left nephrectomy otherwise normal. Soft tissue ultrasound of the right upper extremity showed cellulitis involving right axilla and right upper arm, 10 x 4 x 8 mm subcutaneous mass in right axilla which may be early abscess. Blood and urine cultures were obtained. Urine culture has already resulted as no growth. Blood culture showing no growth on preliminary read. Patient was started on vancomycin and Levaquin. General surgery was consulted and following. 07/03/24 Patient denies any fever, chills, nausea, vomiting, diarrhea, abdominal pain, chest pain, shortness a breath. Patient endorses pain to the right upper extremity which is 3/10. Labs and imaging reviewed. 07/04/24: Assumed Care Patient with worsening swelling and pain to axilla but erythema has improved from previous markings. No fevers since admission and WBC trending down. Patient having I&D 07/04 with general surgery. Review of Systems Review of Systems: All systems reviewed & are unremarkable except as noted in HPI and below Exam Narrative: Physical Exam: GENERAL: Alert and oriented x 3. No acute distress. EYES: EOMI. No scleral icterus. PERRLA. HEENT: Moist mucous membranes. LUNGS: Clear to auscultation bilaterally. No accessory muscle use. CARDIOVASCULAR: Regular rate and rhythm. No murmur. No JVD. S1-S2 ABDOMEN: Soft, non tenderness and non-distended. No palpable masses. EXTREMITIES: No edema. Non-ten
[2024-07-04] MEDS: NICOTINE (*PBKC) 21 MG PATCH 1 PATCH TRANSDERM (09:22)
[2024-07-04] MEDS: traMADol HCL (*CRX) 25 MG TABLET PO ×2 (09:22→14:01)
[2024-07-04] MEDS: DOXYCYCLINE 100 MG/NS 100 ML 100 MG/100 ML BAG IVPB ×2 (09:23→20:47)
[2024-07-04] MEDS: NICOTINE (*PBKC) 2 MG GUM PO (09:28)
--- NOTE | 2024-07-04 12:28 | PM.PNGS ---
Progress Note: A&P Assessment and Plan (1) Abscess: Code(s): L02.91 - Cutaneous abscess, unspecified Status: Acute Assessment and Plan: Cellulitis improved, but she has developed more swelling with an area of fluctuance of the upper arm c/w an abscess. Will add her onto the surgery schedule today for incision and drainage of right arm abscess by Dr. Paige. Description of the procedure, risks, benefits, alternatives, and expected recovery/wound care were discussed with the patient. She agrees to proceed. (2) Cellulitis: Qualifiers: Laterality: right Site of cellulitis: extremity Site of cellulitis of extremity: upper extremity Qualified Code(s): L03.113 - Cellulitis of right upper limb Code(s): L03.90 - Cellulitis, unspecified Status: Acute Assessment and Plan: Continue IV antibiotics. (3) Sepsis: Code(s): A41.9 - Sepsis, unspecified organism Status: Acute Assessment and Plan: Improving. Continue IV antibiotics. Plan I have discussed the patient's case and plan of care with Dr. Paige. Subjective Subjective Date/Time Seen: 07/04/24 12:28 Patient reports: afebrile (Since 07/01/2024) Interval history: Patient feels she has had increased swelling in 1 area close to her axilla. Feels that she is more tender and having more pain in this area. Redness on her arm is improving. Exam Const: General: comfortable and no acute distress Extrem: Other: The more distal area on the upper arm of induration and erythema has improved, but there is a localized area of swelling and erythema with fluctuance near the axilla consistent with abscess. Very tender on exam. Objective Data Vital Signs Vital Signs: Vital Signs - 24 hr 07/03/24 14:00 07/03/24 16:00 07/03/24 20:49 Temperature 97.7 F 98.1 F Pulse Rate 103 H 104 H 95 Respiratory Rate 18 17 Blood Pressure 151/67 H 142/84 H Pulse Oximetry 100 100 Oxygen Delivery 07/03/24 20:00 07/04/24 00:00 07/04/24 04:00 Temperature Pulse Rate 101 H 91 75 Respiratory Rate Blood Pressure Pulse Oximetry Oxygen Delivery 07/04/24 05:17 07/04/24 09:20 07/04/24 08:00 Temperature 97.7 F Pulse Rate 77 72 Respiratory Rate 20 Blood Pressure 118/54 L Pulse Oximetry 99 Oxygen Delivery Room Air 07/04/24 12:00 Temperature Pulse Rate 87 Respiratory Rate Blood Pressure Pulse Oximetry Oxygen Delivery Intake/Output Intake/Output: Intake & Output 07/01/24 07/02/24 07/03/24 07/04/24 23:59 23:59 23:59 23:59 Intake Total 3442.0 3476 1000 Balance 3442.0 3476 1000 Meds/Results Medications: Active Medications Generic Name Dose Route Start Last Admin Trade Name Freq PRN Reason Stop Dose Admin Acetaminophen 650 mg 07/03/24 14:43 Acetaminophen 325 Mg Tablet PO Q4H PRN Mild Pain (1-3) or Fever Albuterol 2 puff 07/02/24 06:16 Albuterol Sulfate (*Sp) Aerosol 1 Puff INHALATION QIDRT PRN Shortness Of Breath Or Wheezing Amitriptyline HCl 50 mg 07/02/24 21:00 07/03/24 20:22 Amitriptyline Hcl 25 Mg Tablet PO 50 mg HS ANTONIO Administration Enoxaparin Sodium 40 mg 07/03/24 09:00 07/04/24 08:33 Enoxaparin 40 Mg/0.4 Ml Syringe SUB-Q Not Given DAILY ANTONIO Hydroxyzine Pamoate 50 mg 07/03/24 10:42 Hydroxyzine Pamoate 25 Mg Capsule PO QID PRN Anxiety Sodium Chloride 1,000 mls @ 100 mls/hr 07/02/24 03:40 07/04/24 05:32 Normal Saline Iv IV CONT Not Given .Q10H ANTONIO Doxycycline Hyclate 100 mg in 100 mls @ 100 mls/hr 07/04/24 09:00 07/04/24 09:23 Vibramycin 100 Mg/Ns 100 Ml IVPB 100 mls/hr Q12HR ANTONIO Administration Levofloxacin 750 mg 07/02/24 14:00 07/03/24 14:55 Levofloxacin 750 Mg Tablet PO 750 mg DAILY@1400 ANTONIO Administration Melatonin 5 mg 07/02/24 14:18 Melatonin 5 Mg Tablet PO HS PRN Insomnia Morphine Sulfate 2 mg 07/03/24 14:43 Mo
[2024-07-04] MEDS: levoFLOXacin 750 MG TABLET PO (14:01)
[2024-07-04 18:11] LABS: BEDSIDEPREGUCG Negative (Negative)
--- NOTE | 2024-07-04 18:15 | WPDANESEPPF ---
Anes - Initial Pre Proc Eval Procedure: Operation Date: 07/04/24 18:00 Proposed Procedures p Incision And Drainage Right Arm Abscess - Roverto Paige DO Date/Time: 07/04/24 18:15 Surgeon: Aurora Vargas APRN Pre Op Diagnosis: R arm abscess and cellulitis Patient Data Age: 43 Gender: F Height: 1.57 m Weight: 65.9 kg Last Vital Signs Temp 36.2 C L 07/04/24 17:48 Pulse 94 07/04/24 17:48 Resp 16 07/04/24 17:48 BP 125/75 07/04/24 17:48 Pulse Ox 100 07/04/24 17:48 O2 Del Method Room Air 07/04/24 17:48 Allergies Allergy/AdvReac Type Severity Reaction Status Date / Time codeine Allergy Unknown Anaphylactic Verified 07/02/24 04:44 Shock guaifenesin Allergy Unknown Reverse Verified 07/02/24 04:44 effect Penicillins Allergy Unknown Anaphylactic Verified 07/02/24 04:44 Shock ketorolac AdvReac Unknown vomiting Verified 07/03/24 10:44 nuts and nut products Allergy Severe respiratory Uncoded 07/02/24 04:44 distress Home Medications Medication Instructions Recorded Confirmed Type amitriptyline 50 mg tablet 50 mg PO .QHS #90 tabs 04/13/22 07/02/24 Rx albuterol sulfate 90 mcg/actuation 2 puff inhalation QID PRN 07/02/24 07/02/24 History aerosol inhaler (Ventolin HFA) Shortness Of Breath Or Wheezing doxycycline hyclate 100 mg tablet 100 mg PO DAILY 07/02/24 07/02/24 History hydroxyzine pamoate 25 mg capsule 50 mg PO QID PRN Anxiety 07/02/24 07/02/24 History lidocaine 4 % topical patch 1 patch topical DAILY PRN Pain 07/02/24 07/02/24 History (Lidocaine Pain Relief) melatonin 5 mg tablet 5 mg PO HS PRN Insomnia 07/02/24 07/02/24 History multivitamin 1 tablet PO DAILY 07/02/24 07/02/24 History nicotine 21 mg/24 hr daily 1 patch transdermal DAILY 07/02/24 07/02/24 History transdermal patch Laboratory Tests 07/04/24 07/04/24 05:28 18:09 WBC 8.7 K/mm3 (4.5-10.0) RBC 3.55 L M/mm3 (4.2-5.4) Hgb 10.3 L g/dL (12.0-15.0) Hct 32.3 L % (37.0-47.0) MCV 91.0 fl (80-100) MCH 29.0 pg (26-34) MCHC 31.9 L g/dl (32-36) RDW 14.2 % (11.5-14.5) Plt Count 208 k/mm3 (150-375) MPV 10.5 H fl (7.4-10.4) Immature Gran % (Auto) 0.2 % (0-0.5) Neut % (Auto) 68.1 % (45.5-73.1) Lymph % (Auto) 20.0 % (18.3-44.2) Hanson % (Auto) 8.1 % (2.6-8.5) Eos % (Auto) 3.1 % (0-4.4) Baso % (Auto) 0.5 % (0.2-1.2) Lymph # (Auto) 1.75 K/mm3 (0.9-3.2) Hanson # (Auto) 0.7 H K/mm3 (0.1-0.6) Eos # (Auto) 0.3 K/mm3 (0-0.3) Baso # (Auto) 0.0 K/mm3 (0.0-0.1) Abs Immat Gran (auto) 0.02 K/mm3 (0.00-0.031) Absolute Neuts (auto) 6.0 K/mm3 (1.3-6.7) Absolute Nucleated RBC 0.000 K/mm3 (0.0-0.012) Nucleated RBC % 0.0 % (0.0-0.2) Sodium 138 mmol/L (137-145) Potassium 4.2 mmol/L (3.4-5.0) Chloride 102 mmol/L (98-107) Carbon Dioxide 25 mmol/L (22-30) Anion Gap 11 mmol/L (4-12) BUN 14 mg/dL (7-17) Creatinine 0.50 L mg/dL (0.7-1.0) Estim Creat Clear Calc 107 ml/min Estimated GFR > 60 (59 - ) Glucose 94 mg/dL (65-110) Calcium 8.7 mg/dL (8.4-10.2) Total Bilirubin 0.1 L mg/dL (0.2-1.3) AST 20 U/L (14-36) ALT 26 U/L (6-35) Alkaline Phosphatase 66 U/L (38-126) Total Protein 7.0 g/dL (6.3-8.2) Albumin 3.6 g/dL (3.5-5.1) POC Urine HCG, Qual Negative (Negative) Patient hx anesthesia problems: none Family hx anesthesia problems: none Results Review: All pre-operative results and documents have been reviewed as part of the pre-operative evaluation. [facility] Past Medical History Medical History Allergies Anemia Asthma Cervical cancer Chicken pox Colitis Fibromyalgia Heart murmur Herpes Histo
--- NOTE | 2024-07-04 18:28 | WPDHPUPDATE1 ---
History and Physical Update Update Date/Time: 07/04/24 18:28 History and Physical has been reviewed, including an updated exam of the patient. There are NO changes in the patient's condition. Risks, benefits, and alternatives have been discussed and questions answered. Patient agrees to proceed with procedure.
[2024-07-04] MEDS: LACTATED RINGERS 1,000 ML 30 ML IV CONT (19:00)
--- NOTE | 2024-07-04 19:02 | SUR.OPER ---
Culture taken to Lab per GARY Damian. Received by
[2024-07-04] MEDS: BUPIVACAINE/EPINEPHRINE 0.5% 50 ML VIAL 20 ML INFILTRATE (19:07)
--- NOTE | 2024-07-04 19:11 | W.PM.PROC2 ---
Procedure Note - Detailed Date of Procedure 07/04/24 Pre-op Diagnosis Right arm abscess and cellulitis Post-op Diagnosis Same Procedure Performed Incision and drainage of complicated right arm abscess Surgeon Roverto Paige, DO Anesthesia MAC (LMA) and Local (0.5% bupivacaine with epinephrine) Indications This is a 43-year-old woman who presented to the emergency department with right upper arm swelling and redness. She was found to have evidence of cellulitis and possibly signs of an early developing abscess. She was started on antibiotics and over the next couple days the redness was improving but there appeared to be more signs of fluctuance. Discussions were made with the patient about treatment options and decision was made to proceed with incision and drainage of right upper arm abscess. Findings Incision and drainage of right arm abscess was performed. The patient was found to have a large abscess in the right medial upper arm near the axilla. A 5 cm incision was made over that area and purulence fluid was drained. There was at least 20 mL of purulence fluid that drained and multiple loculations within the subcutaneous tissue. The loculations were broken up and a culture swab was used to obtain aerobic and anaerobic culture. The wound was then irrigated and packed with 1 in iodoform gauze. Description of Procedure Procedure as well as risks, benefits, and alternatives were discussed with the patient. Written consent was obtained and placed in chart prior to procedure. Patient was brought back to surgical suite. She was placed supine on her hospital stretcher. Time-out was done to confirm patient and procedure. Her right arm was placed out on an arm board. She was placed under anesthesia with an LMA by the anesthesia department. Her right arm was prepped and draped in sterile fashion using chlorhexidine prep. 0.5% bupivacaine with epinephrine was infiltrated locally around the skin overlying the area of abscess. A 5 cm incision was then made using a 15 blade scalpel directly over the area of fluctuance. Purulence fluid was drained. The wound was then probed and loculations were broken up. Hemostasis was achieved with electrocautery. The wound was then irrigated with sterile saline. No further loculations were identified. The wound was then packed with 1 in iodoform gauze. 4 x 4 gauze and Kerlix wrap was then applied. The patient was then awakened from anesthesia, extubated, and transferred to recovery. Estimated Blood Loss 10 Packing Yes (1 Iodoform gauze) Complications No immediate complications Condition Stable Disposition Floor [facility] Billing Surgery - Charge Forward: Surgery Billing
[2024-07-04] MEDS: diphenhydrAMINE HCl INJ 50 MG/ML VIAL 25 MG IV PUSH (19:30)
[2024-07-04] MEDS: fentaNYL CITRATE INJ (*CRX) 100 MCG/2 ML VIAL 25 MCG IV PUSH ×4 (19:42→19:48)
[2024-07-04] MEDS: IBUPROFEN 600 MG TABLET PO (20:48)
[2024-07-04] MEDS: LACTATED RINGERS 1,000 ML 100 ML IV CONT (20:48)
[2024-07-04] MEDS: AMITRIPTYLINE HCL 25 MG TABLET 50 MG PO (20:48)
[2024-07-04] MEDS: MELATONIN 5 MG TABLET PO (20:48)
[2024-07-04] MEDS: HYDROcodone/acetaminophen (*CRX) 5-325 MG TABLET 1 TAB PO (20:51)
[2024-07-05] MEDS: IBUPROFEN 600 MG TABLET PO ×4 (02:21→21:06)
[2024-07-05 03:00] VITALS: BP 101/50; PULSE 61; RESP 18; TEMP 36.6; O2SAT 97
[2024-07-05 05:15] VITALS: BP 110/55; PULSE 64; RESP 18; TEMP 36.6; O2SAT 100
[2024-07-05] MEDS: HYDROcodone/acetaminophen (*CRX) 5-325 MG TABLET 1 TAB PO ×2 (06:12→21:12)
[2024-07-05 06:25] LABS: Basophils Percent Auto 0.2 % (0.2-1.2); Eosinophils Percent Auto 0.1 % (0-4.4); Hematocrit 31.1 % (37.0-47.0); Hemoglobin 9.7 g/dL (12.0-15.0); Immature Granulocyte Absolute 0.03 K/mm3 (0.00-0.031); Immature Granulocyte Percent A 0.4 % (0-0.5); Lymphocytes Absolute Auto 1.14 K/mm3 (0.9-3.2); Lymphocytes Percent Auto 14.1 % (18.3-44.2); Mean Corpuscular HGB Conc 31.2 g/dl (32-36); Mean Corpuscular Hemoglobin 28.5 pg (26-34); Mean Corpuscular Volume 91.5 fl (80-100); Mean Platelet Volume 10.6 fl (7.4-10.4); Monocytes Absolute Auto 0.5 K/mm3 (0.1-0.6); Monocytes Percent Auto 6.3 % (2.6-8.5); Neutrophils Absolute Auto 6.4 K/mm3 (1.3-6.7); Neutrophils Percent Auto 78.9 % (45.5-73.1); Platelet Count Result 242 k/mm3 (150-375); White Blood Count 8.1 K/mm3 (4.5-10.0)
[2024-07-05 06:41] LABS: Alanine Aminotransferase 22 U/L (6-35); Albumin Level 3.4 g/dL (3.5-5.1); Alkaline Phosphatase 63 U/L (38-126); Anion Gap 6 mmol/L (4-12); Aspartate Amino Transferase 18 U/L (14-36); Bilirubin,Total 0.2 mg/dL (0.2-1.3); Blood Urea Nitrogen 18 mg/dL (7-17); Calcium 8.7 mg/dL (8.4-10.2); Carbon Dioxide 30 mmol/L (22-30); Chloride 100 mmol/L (98-107); Estimated CRCL calculation 91 ml/min; Estimated Glomerular Filt Rate > 60; Glucose 113 mg/dL (65-110); Potassium 4.3 mmol/L (3.4-5.0); Sodium 136 mmol/L (137-145)
[2024-07-05] MEDS: ENOXAPARIN 40 MG/0.4 ML SYRINGE SUB-Q (08:38)
[2024-07-05] MEDS: NICOTINE (*PBKC) 21 MG PATCH 1 PATCH TRANSDERM (08:39)
[2024-07-05] MEDS: DOXYCYCLINE 100 MG/NS 100 ML 100 MG/100 ML BAG IVPB ×2 (08:41→21:06)
[2024-07-05 09:01] VITALS: BP 128/56; PULSE 70; RESP 16; TEMP 36.8; O2SAT 99
--- NOTE | 2024-07-05 10:48 | P.PNIM_ITS ---
Progress Note: A&P Assessment and Plan (1) Sepsis: Code(s): A41.9 - Sepsis, unspecified organism Status: Acute Assessment and Plan: RESOLVED * Leukocytyosis, Fever, tachycardia, cellulitis * Sepsis without septic shock secondary to cellulitis * Vancomycin and Levaquin transitioned to Levaquin and doxycycline * Repeat CBC, CMP. * Two sets of blood cultures NGTD (2) Right arm cellulitis: Code(s): L03.113 - Cellulitis of right upper limb Status: Acute Assessment and Plan: 07/04/2024: * Blood culture NGTD * vancomycin and Levaquin switched to doxycycline and Levaquin poor IV access and vanc troughs * Soft tissue ultrasound showing cellulitis involving right axilla and right upper arm, 10 x 4 x 8 mm hypoechoic mass in the right axilla which may be an early abscess * General surgery consulted and following * NPO * I&D 07/04 * Normal WBC today * afebrile * Continue pain control 07/05/24: * Post I&D * Daily dressing change * inoperative culture pending (3) Methamphetamine use: Code(s): F15.10 - Other stimulant abuse, uncomplicated Status: Acute Assessment and Plan: 07/03/24: * History of methamphetamine use * Currently in rehab at [place] (4) Hip pain, left: Code(s): M25.552 - Pain in left hip Status: Acute Assessment and Plan: 07/03/24: * Lumbar spine CT was negative for any acute fracture however did showed advanced degenerative spondylosis at L3-L4, L4-L5, L5-S1 * Continue pain control (5) Tobacco dependence: Code(s): F17.200 - Nicotine dependence, unspecified, uncomplicated Status: Acute Assessment and Plan: ? smoking cessation education ? nicotine patch daily ? remove at night Plan Code status: Full code per patient DVT prophylaxis: Lovenox Stress ulcer prophylaxis: Protonix 40 daily PT/OT notes: NA Disposition: Patient continues admission for cellulitis currently NPO for possible surgical debridement. Patient ambulatory on home and plan will be to discharge back to [place] when medically stable Time Spent With Patient Time with patient: 15 - 25 minutes Subjective Date/time seen: 07/05/24 10:48 Interval history: Admission: Medical Chart This is a 43-year-old female who presented to the hospital on 07/01/2024 for evaluation right arm redness and swelling. Workup in the hospital included lumbar spine CT which was negative for any fracture, showed advanced degenerative spondylosis at L3-L4, L4-L5, and L5-S1. Head CT was negative. Abdomen/pelvis CT on partial left nephrectomy otherwise normal. Soft tissue ultrasound of the right upper extremity showed cellulitis involving right axilla and right upper arm, 10 x 4 x 8 mm subcutaneous mass in right axilla which may be early abscess. Blood and urine cultures were obtained. Urine culture has already resulted as no growth. Blood culture showing no growth on preliminary read. Patient was started on vancomycin and Levaquin. General surgery was consult
--- NOTE | 2024-07-05 10:48 | PM.IMPN ---
Progress Note: A&P Assessment and Plan (1) Sepsis: Code(s): A41.9 - Sepsis, unspecified organism Status: Acute Assessment and Plan: RESOLVED Leukocytyosis, Fever, tachycardia, cellulitis Sepsis without septic shock secondary to cellulitis Vancomycin and Levaquin transitioned to Levaquin and doxycycline Repeat CBC, CMP. Two sets of blood cultures NGTD (2) Right arm cellulitis: Code(s): L03.113 - Cellulitis of right upper limb Status: Acute Assessment and Plan: 07/04/2024: Blood culture NGTD vancomycin and Levaquin switched to doxycycline and Levaquin poor IV access and vanc troughs Soft tissue ultrasound showing cellulitis involving right axilla and right upper arm, 10 x 4 x 8 mm hypoechoic mass in the right axilla which may be an early abscess General surgery consulted and following NPO I&D 07/04 Normal WBC today afebrile Continue pain control 07/05/24: Post I&D Daily dressing change inoperative culture pending (3) Methamphetamine use: Code(s): F15.10 - Other stimulant abuse, uncomplicated Status: Acute Assessment and Plan: 07/03/24: History of methamphetamine use Currently in rehab at [place] (4) Hip pain, left: Code(s): M25.552 - Pain in left hip Status: Acute Assessment and Plan: 07/03/24: Lumbar spine CT was negative for any acute fracture however did showed advanced degenerative 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 smoking cessation education ? nicotine patch daily ? remove at night Plan Code status: Full code per patient DVT prophylaxis: Lovenox Stress ulcer prophylaxis: Protonix 40 daily PT/OT notes: NA Disposition: Patient continues admission for cellulitis currently NPO for possible surgical debridement. Patient ambulatory on home and plan will be to discharge back to [facility] when medically stable Time Spent With Patient Time with patient: 15 - 25 minutes Subjective Date/time seen: 07/05/24 10:48 Interval history: Admission: Medical Chart This is a 43-year-old female who presented to the hospital on 07/01/2024 for evaluation right arm redness and swelling. Workup in the hospital included lumbar spine CT which was negative for any fracture, showed advanced degenerative spondylosis at L3-L4, L4-L5, and L5-S1. Head CT was negative. Abdomen/pelvis CT on partial left nephrectomy otherwise normal. Soft tissue ultrasound of the right upper extremity showed cellulitis involving right axilla and right upper arm, 10 x 4 x 8 mm subcutaneous mass in right axilla which may be early abscess. Blood and urine cultures were obtained. Urine culture has already resulted as no growth. Blood culture showing no growth on preliminary read. Patient was started on vancomycin and Levaquin. General surgery was consulted and following. 07/03/24 Patient denies any fever, chills, nausea, vomiting, diarrhea, abdominal pain, chest pain, shortness a breath. Patient endorses pain to the right upper extremity which is 3/10. Labs and imaging reviewed. 07/04/24: Assumed Care Patient with worsening swelling and pain to axilla but erythema has improved from previous markings. No fevers since admission and WBC trending down. Patient having I&D 07/04 with general surgery. 07/05/24: Patient doing well today tolerated I&D reported pain improved and less pressure. Dressing in place with minimal drainage. Normal WBC and afebrile overnight, inoperative culture pending. Review of Systems Review of Systems: All systems reviewed & are unremarkable except as noted in HPI and below Exam Narrative: Physical Exam: GENERAL: Alert and oriented x 3. No acute distress. EYES: EOMI. No scleral icter
[2024-07-05] MEDS: ONDANSETRON INJ 4 MG/2 ML VIAL IV PUSH ×2 (11:07→17:07)
[2024-07-05] MEDS: diphenhydrAMINE HCl INJ 50 MG/ML VIAL 25 MG IV PUSH ×2 (11:08→21:12)
[2024-07-05] MEDS: MORPHINE SULFATE (*CRX) 4 MG/ML INJ IV PUSH (11:09)
--- NOTE | 2024-07-05 12:19 | PM.PNGS ---
Progress Note: A&P Assessment and Plan (1) Abscess: Code(s): L02.91 - Cutaneous abscess, unspecified Status: Acute (2) Cellulitis: Qualifiers: Laterality: right Site of cellulitis: extremity Site of cellulitis of extremity: upper extremity Qualified Code(s): L03.113 - Cellulitis of right upper limb Code(s): L03.90 - Cellulitis, unspecified Status: Acute (3) Sepsis: Code(s): A41.9 - Sepsis, unspecified organism Status: Acute Plan Doing well on POD#1. Continue daily packing changes for now, but might only have to pack for 1 or 2 more days. Abscess Gram stain showing gram + cocci in clusters. Likely a Staph infection. Should be covered on current antibiotics. Hopefully will keep improving and be able to be discharged in the next couple days. Will continue to follow. Subjective Subjective Date/Time Seen: 07/05/24 12:19 Interval history: Patient doing well today. Pain improving. No fevers. Exam Skin: Other: right arm abscess packing removed, no purulent drainage, erythema and induration slightly improved, re-packed with 1 iodoform gauze. Objective Data Vital Signs Vital Signs: Vital Signs - 24 hr 07/04/24 14:00 07/04/24 17:48 07/04/24 19:05 Temperature 36.8 C 36.2 C L 37.1 C Pulse Rate 83 94 91 Respiratory Rate 18 16 17 Blood Pressure 119/74 125/75 116/81 Pulse Oximetry 100 100 100 Oxygen Delivery Room Air Simple Face Mask Oxygen Flow Rate 10 07/04/24 19:15 07/04/24 19:30 07/04/24 19:45 Temperature Pulse Rate 92 92 91 Respiratory Rate 16 14 14 Blood Pressure 121/84 121/82 128/82 Pulse Oximetry 100 100 100 Oxygen Delivery Room Air Room Air Room Air Oxygen Flow Rate 07/04/24 20:00 07/04/24 20:10 07/04/24 20:25 Temperature 37.2 C 36.9 C Pulse Rate 76 79 Respiratory Rate 20 20 Blood Pressure 158/69 H 126/62 Pulse Oximetry 97 97 Oxygen Delivery Room Air Oxygen Flow Rate 07/04/24 20:55 07/04/24 21:55 07/05/24 03:00 Temperature 37.1 C 36.8 C 36.6 C Pulse Rate 78 76 61 Respiratory Rate 18 18 18 Blood Pressure 124/70 120/60 101/50 L Pulse Oximetry 98 97 97 Oxygen Delivery Oxygen Flow Rate 07/05/24 05:15 07/05/24 09:01 Temperature 36.6 C 36.8 C Pulse Rate 64 70 Respiratory Rate 18 16 Blood Pressure 110/55 L 128/56 L Pulse Oximetry 100 99 Oxygen Delivery Oxygen Flow Rate Intake/Output Intake/Output: Intake & Output 07/02/24 07/03/24 07/04/24 07/05/24 23:59 23:59 23:59 23:59 Intake Total 3442.0 3476 1300 690 Balance 3442.0 3476 1300 690 Meds/Results Medications: Active Medications Generic Name Dose Route Start Last Admin Trade Name Freq PRN Reason Stop Dose Admin Acetaminophen 650 mg 07/03/24 14:43 Acetaminophen 325 Mg Tablet PO Q4H PRN Mild Pain (1-3) or Fever Acetaminophen/Aspirin/Caffeine 1 tablet 07/04/24 15:33 Acetaminophen/Aspirin/Caffeine 250-250-65 Mg Tablet PO Q6H PRN Headache Hydrocodone Bitart/Acetaminophen 1 tab 07/04/24 20:10 07/05/24 06:12 Hydrocodone/Acetaminophen (*Crx) 5-325 Mg Tablet PO 1 tab Q4H PRN Administration Pain Rated 4-6 Hydrocodone Bitart/Acetaminophen 1 tab 07/04/24 20:10 Hydrocodone/Acetaminophen (*Crx) 10-325 Mg Tablet PO Q4H PRN Pain Rated 7-10 Albuterol 2 puff 07/02/24 06:16 Albuterol Sulfate (*Sp) Aerosol 1 Puff INHALATION QIDRT PRN Shortness Of Breath Or Wheezing Amitriptyline HCl 50 mg 07/02/24 21:00 07/04/24 20:48 Amitriptyline Hcl 25 Mg Tablet PO 50 mg HS ANTONIO Administration Diphenhydramine HCl 25 mg 07/04/24 20:10 07/05/24 11:08 Diphenhydramine Hcl Inj 50 Mg/Ml Vial IV PUSH 25 mg Q6H PRN Administration Itching Enoxaparin Sodium 40 mg 07/03/24 09:00 07/05/24 08:38 Enoxaparin 40 Mg/0.4 Ml Syringe SUB-Q 40 mg DAILY ANTONIO Administration Hydroxyzine Pamoate 50 mg 07/03/24 10:42 Hydroxyzine Pamoate 25 Mg Capsule
[2024-07-05 12:55] VITALS: BP 121/70; PULSE 84; RESP 16; TEMP 35.8; O2SAT 99
[2024-07-05] MEDS: levoFLOXacin 750 MG TABLET PO (14:25)
[2024-07-05 16:53] VITALS: BP 124/67; PULSE 90; RESP 16; TEMP 36.7; O2SAT 100
[2024-07-05 20:14] VITALS: BP 103/62; PULSE 77; RESP 16; TEMP 36.8; O2SAT 100
[2024-07-05] MEDS: AMITRIPTYLINE HCL 25 MG TABLET 50 MG PO (21:06)
[2024-07-05] MEDS: MELATONIN 5 MG TABLET PO (21:12)
[2024-07-06 05:15] VITALS: BP 110/52; PULSE 65; RESP 16; TEMP 36.1; O2SAT 99
[2024-07-06 05:44] LABS: Basophils Percent Auto 0.4 % (0.2-1.2); Eosinophils Absolute Auto 0.1 K/mm3 (0-0.3); Eosinophils Percent Auto 2.7 % (0-4.4); Hematocrit 31.8 % (37.0-47.0); Immature Granulocyte Absolute 0.02 K/mm3 (0.00-0.031); Immature Granulocyte Percent A 0.4 % (0-0.5); Lymphocytes Absolute Auto 2.07 K/mm3 (0.9-3.2); Lymphocytes Percent Auto 42.6 % (18.3-44.2); Mean Corpuscular HGB Conc 31.4 g/dl (32-36); Mean Corpuscular Hemoglobin 28.9 pg (26-34); Mean Corpuscular Volume 91.9 fl (80-100); Mean Platelet Volume 10.6 fl (7.4-10.4); Monocytes Absolute Auto 0.4 K/mm3 (0.1-0.6); Monocytes Percent Auto 8.2 % (2.6-8.5); Neutrophils Absolute Auto 2.2 K/mm3 (1.3-6.7); Neutrophils Percent Auto 45.7 % (45.5-73.1); Platelet Count Result 240 k/mm3 (150-375); Red Blood Count 3.46 M/mm3 (4.2-5.4); Red Cell Distribution Width 14.3 % (11.5-14.5); White Blood Count 4.9 K/mm3 (4.5-10.0)
[2024-07-06 05:56] LABS: Alanine Aminotransferase 23 U/L (6-35); Albumin Level 3.4 g/dL (3.5-5.1); Alkaline Phosphatase 69 U/L (38-126); Anion Gap 7 mmol/L (4-12); Aspartate Amino Transferase 22 U/L (14-36); Bilirubin,Total < 0.1 mg/dL (0.2-1.3); Blood Urea Nitrogen 23 mg/dL (7-17); Calcium 8.5 mg/dL (8.4-10.2); Carbon Dioxide 28 mmol/L (22-30); Chloride 101 mmol/L (98-107); Estimated CRCL calculation 91 ml/min; Estimated Glomerular Filt Rate > 60; Glucose 90 mg/dL (65-110); Sodium 136 mmol/L (137-145)
[2024-07-06] MEDS: NICOTINE (*PBKC) 21 MG PATCH 1 PATCH TRANSDERM (09:02)
[2024-07-06] MEDS: IBUPROFEN 600 MG TABLET PO ×2 (09:03→21:01)
[2024-07-06] MEDS: MORPHINE SULFATE (*CRX) 4 MG/ML INJ IV PUSH (11:06)
[2024-07-06] MEDS: DOXYCYCLINE 100 MG/NS 100 ML 100 MG/100 ML BAG IVPB (11:06)
--- NOTE | 2024-07-06 11:08 | P.PNIM_ITS ---
Progress Note: A&P Assessment and Plan (1) Sepsis: Code(s): A41.9 - Sepsis, unspecified organism Status: Acute Assessment and Plan: RESOLVED * Leukocytyosis, Fever, tachycardia, cellulitis * Sepsis without septic shock secondary to cellulitis * Vancomycin and Levaquin transitioned to Levaquin and doxycycline * Repeat CBC, CMP. * Two sets of blood cultures NGTD (2) Right arm cellulitis: Code(s): L03.113 - Cellulitis of right upper limb Status: Acute Assessment and Plan: 07/04/2024: * Blood culture NGTD * vancomycin and Levaquin switched to doxycycline and Levaquin poor IV access and vanc troughs * Soft tissue ultrasound showing cellulitis involving right axilla and right upper arm, 10 x 4 x 8 mm hypoechoic mass in the right axilla which may be an early abscess * General surgery consulted and following * NPO * I&D 07/04 * Normal WBC today * afebrile * Continue pain control 07/05/24: * Post I&D * Daily dressing change * inoperative culture pending 07/06/24 * Culture with staphylococcus aureus * Continue with IV ABX pending final sensitivity * Dressing change (3) Methamphetamine use: Code(s): F15.10 - Other stimulant abuse, uncomplicated Status: Acute Assessment and Plan: 07/03/24: * History of methamphetamine use * Currently in rehab at [place] (4) Hip pain, left: Code(s): M25.552 - Pain in left hip Status: Acute Assessment and Plan: 07/03/24: * Lumbar spine CT was negative for any acute fracture however did showed advanced degenerative spondylosis at L3-L4, L4-L5, L5-S1 * Continue pain control (5) Tobacco dependence: Code(s): F17.200 - Nicotine dependence, unspecified, uncomplicated Status: Acute Assessment and Plan: ? smoking cessation education ? nicotine patch daily ? remove at night Plan Code status: Full code per patient DVT prophylaxis: Lovenox Stress ulcer prophylaxis: Protonix 40 daily PT/OT notes: NA Disposition: Patient continues admission for cellulitis post I&D 2 days Staph aureus in culture prelim. Will continue with IV antibiotics pending final sensitivities patient will discharge to chest not when medically stable. Time Spent With Patient Time with patient: 15 - 25 minutes Subjective Date/time seen: 07/06/24 11:08 Interval history: Admission: Medical Chart This is a 43-year-old female who presented to the hospital on 07/01/2024 for evaluation right arm redness and swelling. Workup in the hospital included lumbar spine CT which was negative for any fracture, showed advanced degenerative spondylosis at L3-L4, L4-L5, and L5-S1. Head CT was negative. Abdomen/pelvis CT on partial left nephrectomy otherwise normal. Soft tissue ultrasound of the right upper extremity showed cellulitis involving right axilla and right upper arm, 10 x 4 x 8 mm subcutaneous mass in right axilla which may be early abscess. Blood and urine cultures were obtained. Urine culture has al
--- NOTE | 2024-07-06 11:08 | PM.IMPN ---
Progress Note: A&P Assessment and Plan (1) Sepsis: Code(s): A41.9 - Sepsis, unspecified organism Status: Acute Assessment and Plan: RESOLVED Leukocytyosis, Fever, tachycardia, cellulitis Sepsis without septic shock secondary to cellulitis Vancomycin and Levaquin transitioned to Levaquin and doxycycline Repeat CBC, CMP. Two sets of blood cultures NGTD (2) Right arm cellulitis: Code(s): L03.113 - Cellulitis of right upper limb Status: Acute Assessment and Plan: 07/04/2024: Blood culture NGTD vancomycin and Levaquin switched to doxycycline and Levaquin poor IV access and vanc troughs Soft tissue ultrasound showing cellulitis involving right axilla and right upper arm, 10 x 4 x 8 mm hypoechoic mass in the right axilla which may be an early abscess General surgery consulted and following NPO I&D 07/04 Normal WBC today afebrile Continue pain control 07/05/24: Post I&D Daily dressing change inoperative culture pending 07/06/24 Culture with staphylococcus aureus Continue with IV ABX pending final sensitivity Dressing change (3) Methamphetamine use: Code(s): F15.10 - Other stimulant abuse, uncomplicated Status: Acute Assessment and Plan: 07/03/24: History of methamphetamine use Currently in rehab at [facility] (4) Hip pain, left: Code(s): M25.552 - Pain in left hip Status: Acute Assessment and Plan: 07/03/24: Lumbar spine CT was negative for any acute fracture however did showed advanced degenerative 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 smoking cessation education ? nicotine patch daily ? remove at night Plan Code status: Full code per patient DVT prophylaxis: Lovenox Stress ulcer prophylaxis: Protonix 40 daily PT/OT notes: NA Disposition: Patient continues admission for cellulitis post I&D 2 days Staph aureus in culture prelim. Will continue with IV antibiotics pending final sensitivities patient will discharge to [facility] when medically stable. Time Spent With Patient Time with patient: 15 - 25 minutes Subjective Date/time seen: 07/06/24 11:08 Interval history: Admission: Medical Chart This is a 43-year-old female who presented to the hospital on 07/01/2024 for evaluation right arm redness and swelling. Workup in the hospital included lumbar spine CT which was negative for any fracture, showed advanced degenerative spondylosis at L3-L4, L4-L5, and L5-S1. Head CT was negative. Abdomen/pelvis CT on partial left nephrectomy otherwise normal. Soft tissue ultrasound of the right upper extremity showed cellulitis involving right axilla and right upper arm, 10 x 4 x 8 mm subcutaneous mass in right axilla which may be early abscess. Blood and urine cultures were obtained. Urine culture has already resulted as no growth. Blood culture showing no growth on preliminary read. Patient was started on vancomycin and Levaquin. General surgery was consulted and following. 07/03/24 Patient denies any fever, chills, nausea, vomiting, diarrhea, abdominal pain, chest pain, shortness a breath. Patient endorses pain to the right upper extremity which is 3/10. Labs and imaging reviewed. 07/04/24: Assumed Care Patient with worsening swelling and pain to axilla but erythema has improved from previous markings. No fevers since admission and WBC trending down. Patient having I&D 07/04 with general surgery. 07/05/24: Patient doing well today tolerated I&D reported pain improved and less pressure. Dressing in place with minimal drainage. Normal WBC and afebrile overnight, inoperative culture pending. 07/06/24: Patient with no complaints, afebrile and normal wbc culture with prelim of staphylococci aureus, will cont
[2024-07-06] MEDS: ONDANSETRON INJ 4 MG/2 ML VIAL IV PUSH ×2 (11:22→21:06)
[2024-07-06] MEDS: diphenhydrAMINE HCl INJ 50 MG/ML VIAL 25 MG IV PUSH (11:22)
--- NOTE | 2024-07-06 11:37 | PM.PNGS ---
Progress Note: A&P Assessment and Plan (1) Abscess: Code(s): L02.91 - Cutaneous abscess, unspecified Status: Acute (2) Cellulitis: Qualifiers: Laterality: right Site of cellulitis: extremity Site of cellulitis of extremity: upper extremity Qualified Code(s): L03.113 - Cellulitis of right upper limb Code(s): L03.90 - Cellulitis, unspecified Status: Acute (3) Sepsis: Code(s): A41.9 - Sepsis, unspecified organism Status: Acute Plan Doing well on POD#2. Culture growing S. aureus. Apply silver gel daily, no further packing required. Possibly home tomorrow. Subjective Subjective Date/Time Seen: 07/06/24 11:37 Interval history: Pain improving. No fevers. Swelling improved. Exam Skin: Other: Right arm abscess--Packing removed, no purulent drainage. Minimal serosanguinous drainage. Erythema, induration improved. Objective Data Vital Signs Vital Signs: Vital Signs - 24 hr 07/05/24 12:55 07/05/24 16:53 07/05/24 20:14 Temperature 35.8 C L 36.7 C 36.8 C Pulse Rate 84 90 77 Respiratory Rate 16 16 16 Blood Pressure 121/70 124/67 103/62 Pulse Oximetry 99 100 100 Oxygen Delivery 07/05/24 20:50 07/06/24 05:15 Temperature 36.1 C L Pulse Rate 65 Respiratory Rate 16 Blood Pressure 110/52 L Pulse Oximetry 99 Oxygen Delivery Room Air Intake/Output Intake/Output: Intake & Output 07/03/24 07/04/24 07/05/24 07/06/24 23:59 23:59 23:59 23:59 Intake Total 3476 1300 1820 690 Balance 3476 1300 1820 690 Meds/Results Medications: Active Medications Generic Name Dose Route Start Last Admin Trade Name Freq PRN Reason Stop Dose Admin Acetaminophen 650 mg 07/03/24 14:43 Acetaminophen 325 Mg Tablet PO Q4H PRN Mild Pain (1-3) or Fever Acetaminophen/Aspirin/Caffeine 1 tablet 07/04/24 15:33 Acetaminophen/Aspirin/Caffeine 250-250-65 Mg Tablet PO Q6H PRN Headache Hydrocodone Bitart/Acetaminophen 1 tab 07/04/24 20:10 07/05/24 21:12 Hydrocodone/Acetaminophen (*Crx) 5-325 Mg Tablet PO 1 tab Q4H PRN Administration Pain Rated 4-6 Hydrocodone Bitart/Acetaminophen 1 tab 07/04/24 20:10 Hydrocodone/Acetaminophen (*Crx) 10-325 Mg Tablet PO Q4H PRN Pain Rated 7-10 Albuterol 2 puff 07/02/24 06:16 Albuterol Sulfate (*Sp) Aerosol 1 Puff INHALATION QIDRT PRN Shortness Of Breath Or Wheezing Amitriptyline HCl 50 mg 07/02/24 21:00 07/05/24 21:06 Amitriptyline Hcl 25 Mg Tablet PO 50 mg HS ANTONIO Administration Diphenhydramine HCl 25 mg 07/04/24 20:10 07/06/24 11:22 Diphenhydramine Hcl Inj 50 Mg/Ml Vial IV PUSH 25 mg Q6H PRN Administration Itching Hydroxyzine Pamoate 50 mg 07/03/24 10:42 Hydroxyzine Pamoate 25 Mg Capsule PO QID PRN Anxiety Doxycycline Hyclate 100 mg in 100 mls @ 100 mls/hr 07/04/24 09:00 07/06/24 11:06 Vibramycin 100 Mg/Ns 100 Ml IVPB 100 mls/hr Q12HR ANTONIO Administration Ibuprofen 600 mg 07/04/24 20:10 07/06/24 09:03 Ibuprofen 600 Mg Tablet PO 600 mg Q6H ANTONIO Administration Levofloxacin 750 mg 07/02/24 14:00 07/05/24 14:25 Levofloxacin 750 Mg Tablet PO 750 mg DAILY@1400 ANTONIO Administration Melatonin 5 mg 07/02/24 14:18 07/05/24 21:12 Melatonin 5 Mg Tablet PO 5 mg HS PRN Administration Insomnia Morphine Sulfate 2 mg 07/04/24 20:10 Morphine Sulfate (*Crx) 2 Mg/Ml Inj IV PUSH Q2H PRN Breakthrough Pain Rated 4-6 or NPO Morphine Sulfate 4 mg 07/04/24 20:10 07/06/24 11:06 Morphine Sulfate (*Crx) 4 Mg/Ml Inj IV PUSH 4 mg Q2H PRN Administration Breakthrough Pain Rated 7-10 or NPO Naloxone HCl 0.1 mg 07/04/24 20:10 Naloxone Hcl 0.4 Mg/Ml Vial IV PUSH Q2M PRN Opiate Reversal Nicotine 1 patch 07/02/24 20:40 09/14/24 09:02 Nicotine (*Pbkc) 21 Mg Patch TRANSDERM 1 patch DAILY ANTONIO Administration Nicotine Polacrilex 2 mg
[2024-07-06 14:34] VITALS: BP 103/65; PULSE 80; RESP 16; TEMP 36.5; O2SAT 100
[2024-07-06] MEDS: HYDROcodone/acetaminophen (*CRX) 5-325 MG TABLET 1 TAB PO ×2 (14:47→21:06)
[2024-07-06] MEDS: levoFLOXacin 750 MG TABLET PO (14:47)
[2024-07-06 19:57] VITALS: BP 108/72; PULSE 76; RESP 16; TEMP 36.8; O2SAT 100
[2024-07-06] MEDS: DOXYCYCLINE HYCLATE 100 MG TABLET PO (21:01)
[2024-07-06] MEDS: MELATONIN 5 MG TABLET PO (21:01)
[2024-07-06] MEDS: AMITRIPTYLINE HCL 25 MG TABLET 50 MG PO (21:01)
[2024-07-06] MEDS: diphenhydrAMINE HCl CAP 25 MG CAPSULE PO (21:07)
[2024-07-07] MEDS: ONDANSETRON INJ 4 MG/2 ML VIAL IV PUSH ×2 (02:37→20:57)
[2024-07-07 05:25] LABS: Basophils Percent Auto 0.5 % (0.2-1.2); Eosinophils Absolute Auto 0.2 K/mm3 (0-0.3); Eosinophils Percent Auto 4.3 % (0-4.4); Hematocrit 31.5 % (37.0-47.0); Hemoglobin 10.2 g/dL (12.0-15.0); Immature Granulocyte Absolute 0.03 K/mm3 (0.00-0.031); Immature Granulocyte Percent A 0.5 % (0-0.5); Lymphocytes Absolute Auto 2.48 K/mm3 (0.9-3.2); Lymphocytes Percent Auto 44.8 % (18.3-44.2); Mean Corpuscular HGB Conc 32.4 g/dl (32-36); Mean Corpuscular Hemoglobin 29.2 pg (26-34); Mean Corpuscular Volume 90.3 fl (80-100); Mean Platelet Volume 10.5 fl (7.4-10.4); Monocytes Absolute Auto 0.4 K/mm3 (0.1-0.6); Neutrophils Absolute Auto 2.4 K/mm3 (1.3-6.7); Neutrophils Percent Auto 42.9 % (45.5-73.1); Platelet Count Result 258 k/mm3 (150-375); Red Blood Count 3.49 M/mm3 (4.2-5.4); Red Cell Distribution Width 13.9 % (11.5-14.5); White Blood Count 5.5 K/mm3 (4.5-10.0)
[2024-07-07 05:34] VITALS: BP 106/52; PULSE 55; RESP 16; TEMP 36.2; O2SAT 97
[2024-07-07 05:38] LABS: Alanine Aminotransferase 21 U/L (6-35); Albumin Level 3.6 g/dL (3.5-5.1); Alkaline Phosphatase 66 U/L (38-126); Anion Gap 8 mmol/L (4-12); Aspartate Amino Transferase 22 U/L (14-36); Bilirubin,Total < 0.1 mg/dL (0.2-1.3); Blood Urea Nitrogen 18 mg/dL (7-17); Calcium 9.2 mg/dL (8.4-10.2); Carbon Dioxide 31 mmol/L (22-30); Chloride 97 mmol/L (98-107); Estimated CRCL calculation 79 ml/min; Estimated Glomerular Filt Rate > 60; Glucose 82 mg/dL (65-110); Potassium 4.3 mmol/L (3.4-5.0); Sodium 136 mmol/L (137-145)
[2024-07-07] MEDS: NICOTINE (*PBKC) 21 MG PATCH 1 PATCH TRANSDERM (08:42)
[2024-07-07] MEDS: DOXYCYCLINE HYCLATE 100 MG TABLET PO ×2 (08:42→20:57)
--- NOTE | 2024-07-07 12:44 | P.PNIM_ITS ---
Progress Note: A&P Assessment and Plan (1) Sepsis: Code(s): A41.9 - Sepsis, unspecified organism Status: Acute Assessment and Plan: RESOLVED * Leukocytyosis, Fever, tachycardia, cellulitis * Sepsis without septic shock secondary to cellulitis * Vancomycin and Levaquin transitioned to Levaquin and doxycycline * Repeat CBC, CMP. * Two sets of blood cultures NGTD (2) Right arm cellulitis: Code(s): L03.113 - Cellulitis of right upper limb Status: Acute Assessment and Plan: 07/04/2024: * Blood culture NGTD * vancomycin and Levaquin switched to doxycycline and Levaquin poor IV access and vanc troughs * Soft tissue ultrasound showing cellulitis involving right axilla and right upper arm, 10 x 4 x 8 mm hypoechoic mass in the right axilla which may be an early abscess * General surgery consulted and following * NPO * I&D 07/04 * Normal WBC today * afebrile * Continue pain control 07/05/24: * Post I&D * Daily dressing change * inoperative culture pending 07/06/24 * Culture with staphylococcus aureus * Continue with IV ABX pending final sensitivity * Dressing change 07/07/24 * Switched to PO doxy * No further packing * daily dressing changes (3) Methamphetamine use: Code(s): F15.10 - Other stimulant abuse, uncomplicated Status: Acute Assessment and Plan: 07/03/24: * History of methamphetamine use * Currently in rehab at [place] (4) Hip pain, left: Code(s): M25.552 - Pain in left hip Status: Acute Assessment and Plan: 07/03/24: * Lumbar spine CT was negative for any acute fracture however did showed advanced degenerative spondylosis at L3-L4, L4-L5, L5-S1 * Continue pain control (5) Tobacco dependence: Code(s): F17.200 - Nicotine dependence, unspecified, uncomplicated Status: Acute Assessment and Plan: ? smoking cessation education ? nicotine patch daily ? remove at night Plan Code status: Full code per patient DVT prophylaxis: Lovenox Stress ulcer prophylaxis: Protonix 40 daily PT/OT notes: NA Disposition: Patient continues admission for cellulitis post I&D 2 days Staph aureus in culture prelim. Waiting on approval back to [place]. Time Spent With Patient Time with patient: 15 - 25 minutes Subjective Date/time seen: 07/07/24 12:44 Interval history: Admission: Medical Chart This is a 43-year-old female who presented to the hospital on 07/01/2024 for evaluation right arm redness and swelling. Workup in the hospital included lumbar spine CT which was negative for any fracture, showed advanced degenerative spondylosis at L3-L4, L4-L5, and L5-S1. Head CT was negative. Abdomen/pelvis CT on partial left nephrectomy otherwise normal. Soft tissue ultrasound of the right upper extremity showed cellulitis involving right axilla and right upper arm, 10 x 4 x 8 mm subcutaneous mass in right axilla which may be early abscess. Blood and urine cultures were obtained. Ur
--- NOTE | 2024-07-07 12:44 | PM.IMPN ---
Progress Note: A&P Assessment and Plan (1) Sepsis: Code(s): A41.9 - Sepsis, unspecified organism Status: Acute Assessment and Plan: RESOLVED Leukocytyosis, Fever, tachycardia, cellulitis Sepsis without septic shock secondary to cellulitis Vancomycin and Levaquin transitioned to Levaquin and doxycycline Repeat CBC, CMP. Two sets of blood cultures NGTD (2) Right arm cellulitis: Code(s): L03.113 - Cellulitis of right upper limb Status: Acute Assessment and Plan: 07/04/2024: Blood culture NGTD vancomycin and Levaquin switched to doxycycline and Levaquin poor IV access and vanc troughs Soft tissue ultrasound showing cellulitis involving right axilla and right upper arm, 10 x 4 x 8 mm hypoechoic mass in the right axilla which may be an early abscess General surgery consulted and following NPO I&D 07/04 Normal WBC today afebrile Continue pain control 07/05/24: Post I&D Daily dressing change inoperative culture pending 07/06/24 Culture with staphylococcus aureus Continue with IV ABX pending final sensitivity Dressing change 07/07/24 Switched to PO doxy No further packing daily dressing changes (3) Methamphetamine use: Code(s): F15.10 - Other stimulant abuse, uncomplicated Status: Acute Assessment and Plan: 07/03/24: History of methamphetamine use Currently in rehab at [place] (4) Hip pain, left: Code(s): M25.552 - Pain in left hip Status: Acute Assessment and Plan: 07/03/24: Lumbar spine CT was negative for any acute fracture however did showed advanced degenerative 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 smoking cessation education ? nicotine patch daily ? remove at night Plan Code status: Full code per patient DVT prophylaxis: Lovenox Stress ulcer prophylaxis: Protonix 40 daily PT/OT notes: NA Disposition: Patient continues admission for cellulitis post I&D 2 days Staph aureus in culture prelim. Waiting on approval back to [facility]. Time Spent With Patient Time with patient: 15 - 25 minutes Subjective Date/time seen: 07/07/24 12:44 Interval history: Admission: Medical Chart This is a 43-year-old female who presented to the hospital on 07/01/2024 for evaluation right arm redness and swelling. Workup in the hospital included lumbar spine CT which was negative for any fracture, showed advanced degenerative spondylosis at L3-L4, L4-L5, and L5-S1. Head CT was negative. Abdomen/pelvis CT on partial left nephrectomy otherwise normal. Soft tissue ultrasound of the right upper extremity showed cellulitis involving right axilla and right upper arm, 10 x 4 x 8 mm subcutaneous mass in right axilla which may be early abscess. Blood and urine cultures were obtained. Urine culture has already resulted as no growth. Blood culture showing no growth on preliminary read. Patient was started on vancomycin and Levaquin. General surgery was consulted and following. 07/03/24 Patient denies any fever, chills, nausea, vomiting, diarrhea, abdominal pain, chest pain, shortness a breath. Patient endorses pain to the right upper extremity which is 3/10. Labs and imaging reviewed. 07/04/24: Assumed Care Patient with worsening swelling and pain to axilla but erythema has improved from previous markings. No fevers since admission and WBC trending down. Patient having I&D 07/04 with general surgery. 07/05/24: Patient doing well today tolerated I&D reported pain improved and less pressure. Dressing in place with minimal drainage. Normal WBC and afebrile overnight, inoperative culture pending. 07/06/24: Patient with no complaints, afebrile and normal wbc culture with prelim of staphylococci aureus, will sharad
[2024-07-07] MEDS: HYDROcodone/acetaminophen (*CRX) 10-325 MG TABLET 1 TAB PO (12:54)
[2024-07-07] MEDS: levoFLOXacin 750 MG TABLET PO (13:03)
[2024-07-07 14:00] VITALS: BP 115/75; PULSE 74; RESP 12; O2SAT 99
--- NOTE | 2024-07-07 14:02 | PM.PNGS ---
Progress Note: A&P Assessment and Plan (1) Abscess: Code(s): L02.91 - Cutaneous abscess, unspecified Status: Acute (2) Cellulitis: Qualifiers: Laterality: right Site of cellulitis: extremity Site of cellulitis of extremity: upper extremity Qualified Code(s): L03.113 - Cellulitis of right upper limb Code(s): L03.90 - Cellulitis, unspecified Status: Acute (3) Sepsis: Code(s): A41.9 - Sepsis, unspecified organism Status: Acute Plan Doing well on POD#3. Culture growing S. aureus. Apply silver gel daily, no further packing required. Surgically stable for discharge. Subjective Subjective Date/Time Seen: 07/07/24 14:02 Interval history: Wound care going well. Still having some stinging pain. No worsening redness or drainage. Exam Skin: Other: Right arm abscess--no purulent drainage. Minimal serosanguinous drainage. Erythema, induration improved. Objective Data Vital Signs Vital Signs: Vital Signs - 24 hr 07/06/24 14:34 07/06/24 19:57 07/06/24 20:56 Temperature 97.7 F 98.3 F Pulse Rate 80 76 Respiratory Rate 16 16 Blood Pressure 103/65 108/72 Pulse Oximetry 100 100 Oxygen Delivery Room Air 07/07/24 05:34 07/07/24 08:45 Temperature 97.2 F L Pulse Rate 55 L Respiratory Rate 16 Blood Pressure 106/52 L Pulse Oximetry 97 Oxygen Delivery Room Air Intake/Output Intake/Output: Intake & Output 07/04/24 07/05/24 07/06/24 07/07/24 23:59 23:59 23:59 23:59 Intake Total 1300 1820 1170 700 Balance 1300 1820 1170 700 Meds/Results Medications: Active Medications Generic Name Dose Route Start Last Admin Trade Name Freq PRN Reason Stop Dose Admin Acetaminophen 650 mg 07/03/24 14:43 Acetaminophen 325 Mg Tablet PO Q4H PRN Mild Pain (1-3) or Fever Acetaminophen/Aspirin/Caffeine 1 tablet 07/04/24 15:33 Acetaminophen/Aspirin/Caffeine 250-250-65 Mg Tablet PO Q6H PRN Headache Hydrocodone Bitart/Acetaminophen 1 tab 07/04/24 20:10 07/06/24 21:06 Hydrocodone/Acetaminophen (*Crx) 5-325 Mg Tablet PO 1 tab Q4H PRN Administration Pain Rated 4-6 Hydrocodone Bitart/Acetaminophen 1 tab 07/04/24 20:10 07/07/24 12:54 Hydrocodone/Acetaminophen (*Crx) 10-325 Mg Tablet PO 1 tab Q4H PRN Administration Pain Rated 7-10 Albuterol 2 puff 07/02/24 06:16 Albuterol Sulfate (*Sp) Aerosol 1 Puff INHALATION QIDRT PRN Shortness Of Breath Or Wheezing Amitriptyline HCl 50 mg 07/02/24 21:00 07/06/24 21:01 Amitriptyline Hcl 25 Mg Tablet PO 50 mg HS ANTONIO Administration Diphenhydramine HCl 25 mg 07/06/24 11:36 07/06/24 21:07 Diphenhydramine Hcl Cap 25 Mg Capsule PO 25 mg Q6H PRN Administration Itching Doxycycline Hyclate 100 mg 07/06/24 21:00 07/07/24 08:42 Doxycycline Hyclate 100 Mg Tablet PO 100 mg Q12HR [facility] Administration Hydroxyzine Pamoate 50 mg 07/03/24 10:42 Hydroxyzine Pamoate 25 Mg Capsule PO QID PRN Anxiety Ibuprofen 600 mg 07/04/24 20:10 07/07/24 12:38 Ibuprofen 600 Mg Tablet PO Not Given Q6H [facility] Levofloxacin 750 mg 07/02/24 14:00 07/07/24 13:03 Levofloxacin 750 Mg Tablet PO 750 mg DAILY@1400 [facility] Administration Melatonin 5 mg 07/02/24 14:18 07/06/24 21:01 Melatonin 5 Mg Tablet PO 5 mg HS PRN Administration Insomnia Morphine Sulfate 2 mg 07/04/24 20:10 Morphine Sulfate (*Crx) 2 Mg/Ml Inj IV PUSH Q2H PRN Breakthrough Pain Rated 4-6 or NPO Morphine Sulfate 4 mg 07/04/24 20:10 07/06/24 11:06 Morphine Sulfate (*Crx) 4 Mg/Ml Inj IV PUSH 4 mg Q2H PRN Administration Breakthrough Pain Rated 7-10 or NPO Naloxone HCl 0.1 mg 07/04/24 20:10 Naloxone Hcl 0.4 Mg/Ml Vial IV PUSH Q2M PRN Opiate Reversal Nicotine 1 patch 07/02/24 20:40 07/07/24 08:42 Nicotine (*Pbkc) 21 Mg Patch TRANSDERM 1 patch DAILY ANTONIO Administration Nicoti
[2024-07-07 15:31] VITALS: O2SAT 100
[2024-07-07] MEDS: IBUPROFEN 600 MG TABLET PO (20:57)
[2024-07-07] MEDS: MELATONIN 5 MG TABLET PO (20:57)
[2024-07-07] MEDS: HYDROcodone/acetaminophen (*CRX) 5-325 MG TABLET 1 TAB PO (20:57)
[2024-07-07] MEDS: AMITRIPTYLINE HCL 25 MG TABLET 50 MG PO (20:57)
[2024-07-07 21:55] VITALS: BP 114/66; PULSE 79; RESP 13; TEMP 36.8; O2SAT 100
[2024-07-08 05:43] VITALS: BP 117/56; PULSE 68; RESP 14; TEMP 36.3; O2SAT 100
[2024-07-08 08:00] VITALS: PULSE 68; RESP 14; O2SAT 100
[2024-07-08] MEDS: DOXYCYCLINE HYCLATE 100 MG TABLET PO (08:57)
[2024-07-08] MEDS: NICOTINE (*PBKC) 21 MG PATCH 1 PATCH TRANSDERM (08:57)
[2024-07-08] MEDS: IBUPROFEN 600 MG TABLET PO (08:57)
[2024-07-08] MEDS: HYDROcodone/acetaminophen (*CRX) 10-325 MG TABLET 1 TAB PO (08:58)
--- NOTE | 2024-07-08 10:53 | P.DS_ITS ---
DS: Admitting Diagnosis Discharge Date 07/08/2024 Admitting Diagnosis Cellulitis with abscess right axilla DS: Discharge Diagnosis Discharge Diagnosis (1) Sepsis: Code(s): A41.9 - Sepsis, unspecified organism Status: Acute Assessment and Plan: RESOLVED * Leukocytyosis, Fever, tachycardia, cellulitis * Sepsis without septic shock secondary to cellulitis * Vancomycin and Levaquin transitioned to Levaquin and doxycycline * Repeat CBC, CMP. * Two sets of blood cultures NGTD (2) Right arm cellulitis: Code(s): L03.113 - Cellulitis of right upper limb Status: Acute Assessment and Plan: 07/04/2024: * Blood culture NGTD * vancomycin and Levaquin switched to doxycycline and Levaquin poor IV access and vanc troughs * Soft tissue ultrasound showing cellulitis involving right axilla and right upper arm, 10 x 4 x 8 mm hypoechoic mass in the right axilla which may be an early abscess * General surgery consulted and following * NPO * I&D 07/04 * Normal WBC today * afebrile * Continue pain control 07/05/24: * Post I&D * Daily dressing change * inoperative culture pending 07/06/24 * Culture with staphylococcus aureus * Continue with IV ABX pending final sensitivity * Dressing change 07/07/24 * Switched to PO doxy * No further packing * daily dressing changes (3) Methamphetamine use: Code(s): F15.10 - Other stimulant abuse, uncomplicated Status: Acute Assessment and Plan: 07/03/24: * History of methamphetamine use * Currently in rehab at [place] (4) Hip pain, left: Code(s): M25.552 - Pain in left hip Status: Acute Assessment and Plan: 07/03/24: * Lumbar spine CT was negative for any acute fracture however did showed advanced degenerative spondylosis at L3-L4, L4-L5, L5-S1 * Continue pain control (5) Tobacco dependence: Code(s): F17.200 - Nicotine dependence, unspecified, uncomplicated Status: Acute Assessment and Plan: ? smoking cessation education ? nicotine patch daily ? remove at night Plan Code status: Full code per patient Disposition: Discharged to [place] DS: Summary Hospital Course Reason for hospitalization: Cellulitis with abscess right axilla Hospital Course: Admission: Medical Chart This is a 43-year-old female who presented to the hospital on 07/01/2024 for evaluation right arm redness and swelling. Workup in the hospital included lumbar spine CT which was negative for any fracture, showed advanced degenerative spondylosis at L3-L4, L4-L5, and L5-S1. Head CT was negative. Abdomen/pelvis CT on partial left nephrectomy otherwise normal. Soft tissue ultrasound of the right upper extremity showed cellulitis involving right axilla and right upper arm, 10 x 4 x 8 mm subcutaneous mass in right axilla which may be early abscess. Blood and urine cultures were obtained. Urine culture has already resulted as no growth. Blood culture showing no growth o
--- NOTE | 2024-07-08 10:53 | PM.DS ---
DS: Admitting Diagnosis Discharge Date 07/08/2024 Admitting Diagnosis Cellulitis with abscess right axilla DS: Discharge Diagnosis Discharge Diagnosis (1) Sepsis: Code(s): A41.9 - Sepsis, unspecified organism Status: Acute Assessment and Plan: RESOLVED Leukocytyosis, Fever, tachycardia, cellulitis Sepsis without septic shock secondary to cellulitis Vancomycin and Levaquin transitioned to Levaquin and doxycycline Repeat CBC, CMP. Two sets of blood cultures NGTD (2) Right arm cellulitis: Code(s): L03.113 - Cellulitis of right upper limb Status: Acute Assessment and Plan: 07/04/2024: Blood culture NGTD vancomycin and Levaquin switched to doxycycline and Levaquin poor IV access and vanc troughs Soft tissue ultrasound showing cellulitis involving right axilla and right upper arm, 10 x 4 x 8 mm hypoechoic mass in the right axilla which may be an early abscess General surgery consulted and following NPO I&D 07/04 Normal WBC today afebrile Continue pain control 07/05/24: Post I&D Daily dressing change inoperative culture pending 07/06/24 Culture with staphylococcus aureus Continue with IV ABX pending final sensitivity Dressing change 07/07/24 Switched to PO doxy No further packing daily dressing changes (3) Methamphetamine use: Code(s): F15.10 - Other stimulant abuse, uncomplicated Status: Acute Assessment and Plan: 07/03/24: History of methamphetamine use Currently in rehab at [facility] (4) Hip pain, left: Code(s): M25.552 - Pain in left hip Status: Acute Assessment and Plan: 07/03/24: Lumbar spine CT was negative for any acute fracture however did showed advanced degenerative 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 smoking cessation education ? nicotine patch daily ? remove at night Plan Code status: Full code per patient Disposition: Discharged to [facility] DS: Summary Hospital Course Reason for hospitalization: Cellulitis with abscess right axilla Hospital Course: Admission: Medical Chart This is a 43-year-old female who presented to the hospital on 07/01/2024 for evaluation right arm redness and swelling. Workup in the hospital included lumbar spine CT which was negative for any fracture, showed advanced degenerative spondylosis at L3-L4, L4-L5, and L5-S1. Head CT was negative. Abdomen/pelvis CT on partial left nephrectomy otherwise normal. Soft tissue ultrasound of the right upper extremity showed cellulitis involving right axilla and right upper arm, 10 x 4 x 8 mm subcutaneous mass in right axilla which may be early abscess. Blood and urine cultures were obtained. Urine culture has already resulted as no growth. Blood culture showing no growth on preliminary read. Patient was started on vancomycin and Levaquin. General surgery was consulted and following. 07/03/24 Patient denies any fever, chills, nausea, vomiting, diarrhea, abdominal pain, chest pain, shortness a breath. Patient endorses pain to the right upper extremity which is 3/10. Labs and imaging reviewed. 07/04/24: Assumed Care Patient with worsening swelling and pain to axilla but erythema has improved from previous markings. No fevers since admission and WBC trending down. Patient having I&D 07/04 with general surgery. 07/05/24: Patient doing well today tolerated I&D reported pain improved and less pressure. Dressing in place with minimal drainage. Normal WBC and afebrile overnight, inoperative culture pending. 07/06/24: Patient with no complaints, afebrile and normal wbc culture with prelim of staphylococci aureus, will continue with IV ABX pending cultures, surgery to change dressing. Swelling and erythema impr
== END 2024-07-08 11:05 | disposition home or self-care (01) | DRG 720 ==
LOC: ANHED 07-02 03:39 → ANH2MED 07-02 04:56
PROVIDERS: Physician Assistant; Student in an Organized Health Care Education/Training Program; Surgery; Admitting Provider Internal Medicine; Emergency Provider Registered Nurse; PCP Internal Medicine; Visit Provider Nurse Practitioner Family
PROC: 0X940ZZ Drainage of Right Axilla, Open Approach (ICD-10-PCS; principal; 2024-07-04 18:00)
DX: A41.9 Sepsis, unspecified organism (principal); L03.113 Cellulitis of right upper limb; L02.413 Cutaneous abscess of right upper limb; I10 Essential (primary) hypertension; J45.909 Unspecified asthma, uncomplicated; E78.5 Hyperlipidemia, unspecified; E11.9 Type 2 diabetes mellitus without complications; B95.61 Methicillin susceptible Staphylococcus aureus infection as the cause of diseases classified elsewhere; M79.7 Fibromyalgia; M25.552 Pain in left hip; M19.90 Unspecified osteoarthritis, unspecified site; R51.9 Headache, unspecified; G40.909 Epilepsy, unspecified, not intractable, without status epilepticus; F15.10 Other stimulant abuse, uncomplicated; Z87.891 Personal history of nicotine dependence; Z85.528 Personal history of other malignant neoplasm of kidney; Z85.41 Personal history of malignant neoplasm of cervix uteri; Z87.828 Personal history of other (healed) physical injury and trauma
CPT/HCPCS: 36415; 70450; 72131; 74177; 76882; 80053; 80202; 81001; 83036; 83605; 85025; 85610; 85652; 85730; 86140; 87040; 87070; 87075; 87081; 87086; 87088; 87181; 87205; 93005; 96361; 96365; 96366; 96375; 99285; A9270; G0378; G0379; J1200; J1650; J1885; J2270; J2405; J2704; J3010; J3370; J7030; J7120; Q9967